=== PATIENT | male | born 1975 | race Caucasian/White ===

== ENCOUNTER 2016-03-03 11:57 | Emergency (ER) | payer OTHER ==
[2016-03-03 13:38] VITALS: BP 146/90
[2016-03-03] MEDS ORDERED: Cyclobenzaprine TAB* 10 MG PO ONE (14:37)
[2016-03-03] MEDS ORDERED: Ketorolac INJ* 30 MG/ML 1 ML VIAL IM ONE (14:37)
--- NOTE | 2016-03-03 14:52 | UC ---
Back Pain HPI - HPI Summary HPI Summary: Sneezed this morning, felt acute pain in lower back. Has had 2 surgeries ( laminectomy and fusion) by Dr. Gonzales and Dr. Hamilton, 2nd surgery started with a sneeze as well. Has some radiating pain and numbness in legs in typical pre- existing distribution. No saddle anesthesia or trouble with bowel or bladder. - History of Current Complaint Chief Complaint: UCBackPain Stated Complaint: BACK PAIN Time Seen by Provider: 03/03/16 14:08 Hx Obtained From: Patient Onset/Duration: Sudden Onset Timing: Constant Severity Initially: Severe Severity Currently: Severe Back Pain: Is Discrete @ Character: Dull, Aching, Spasmodic Aggravating: Movement, Bending, Walking, Cough Alleviating: Rest Associated Signs And Symptoms: Positive: Numbness - R foot. Negative: Swelling , Redness, Flank Pain, Bladder Incontinence - Allergies/Home Medications Allergies/Adverse Reactions: Allergies Allergy/AdvReac Type Severity Reaction Status Date / Time Cefaclor [From Ceclor] Allergy Unknown Verified 02/12/16 07:28 Reaction Details Erythromycin Allergy Unknown Verified 02/12/16 07:28 Reaction Details Home Medications: Home Medications Acetaminophen [Eq Acetaminophen] 650 mg PO 03/03/16 [History] PMH/Surg Hx/FS Hx/Imm Hx Endocrine History Of: Reports: Thyroid Disease - HYPO Denies: Diabetes, Hyperthyroidism, Hypothyroidism, Dyslipidemia Cardiovascular History Of: Reports: Hypertension - WELL CONTROLLED Denies: Cardiac Disorders, Pacemaker/ICD, Myocardial Infarction, Congestive Heart Failure, Atrial Fibrillation, Deep Vein Thrombosis, Bleeding Disorders Respiratory History Of: Reports: Asthma - EXERCISE INDUCED Denies: COPD, Bronchitis, Pneumonia, Pulmonary Embolism GI/ History Of: Denies: Gastroesophageal Reflux, Ulcer, Gastrointestinal Bleed, Gall Bladder Disease, Kidney Stones, Diverticulitis, Renal Disease, Urosepsis Neurological History Of: Denies: TIA, CVA, Dementia, Seizures, Migraine Psychological History Of: Denies: Anxiety, Depression, Bipolar Disorder, Schizophrenia, Post Traumatic Stress Disorder Cancer History Of: Denies: Lung Cancer, Colorectal Cancer, Breast Cancer, Prostate Cancer, Cervical Cancer Other History Of: Negative For: HIV, Hepatitis B, Hepatitis C, Anticoagulant Therapy - Surgical History Surgical History: Yes Surgery Procedure, Year, and Place: L4/5 LAMINOTOMY 2008 [facility] - redo in 2015. KNEE ARTHROSCOPY 20+YRS AGO [facility] - Family History Known Family History: Positive: Cardiac Disease, Hypertension Negative: Blood Disorder - Social History Occupation: Employed Part-time - at [employer] Lives: With Family Alcohol Use: Rare Substance Use Type: Prescribed Substance Use Comment - Amount & Last Used: OXYCODONE PRN Smoking Status (MU): Never Smoked Tobacco Review of Systems Constitutional: Negative Skin: Negative Eyes: Negative ENT: Negative Respiratory: Negative Cardiovascular: Negative Gastrointestinal: Negative Genitourinary: Negative Motor: Negative Neurovascular: Negative Musculoskeletal: Arthralgia, Calf Tenderness Neurological: Paresthesia - bilat legs Psychological: Negative All Other Systems Reviewed And Are Negative: Yes Physical Exam Triage Information Reviewed: Yes Appearance: Well-Appearing, Well-Nourished, Pain Distress - mod, with movement Vital Signs: Initial Vital Signs Temp 98.5 F 03/03/16 13:35 Pulse 73 03/03/16 13:35 Resp 18 03/03/16 13:35 BP 146/90 03/03/16 13:35 Pulse Ox 99 03/03/16 13:35 Vital Signs Reviewed: Yes Eye Exam: Normal Eyes: Positive: Conjunctiva Clear ENT Exam: Normal ENT: Positive: Normal ENT inspection, Hearing grossly normal, Pharynx normal, TMs normal Dental Exam: Normal Neck exam: Normal Neck: Positive: Supple, Nontender, No Lymphadenopathy Respiratory Exam: Normal Respiratory: Positive: Chest non-tender, Lungs clear, Normal breath sounds, No respiratory distress, No accessory muscle use Cardiovascular Exam: Normal Cardiovascular: Positive: RRR, No Murmur Musculoskeletal: Positive: Strength Intact, ROM Intact - except for back ROM Neurological Exam: Other - DTRs 1+ bilat LE Neurological: Positive: Alert, Muscle Tone Normal Psychological Exam: Normal Psychological: Positive: Normal Response To Family Skin Exam: Normal Back Pain Course/Dx - Differential Dx/Diagnosis Provider Diagnoses: lumbar radiculopathy. acute on chronic back pain Discharge - Discharge Plan Condition: Stable Disposition: HOME Prescriptions: HYDROcodone/ACETAMIN 5-325 MG* [[place] 5-325 TAB*] 1 tab PO Q6H PRN #12 tab MDD 4 PRN Reason: Pain Ketorolac TAB (NF) [Toradol TAB (NF)] 10 mg PO TID #15 tab traMADol TAB* [Ultram*] 50 mg PO Q6HR PRN #15 tab MDD 4 PRN Reason: Pain Patient Education Materials: Lumbar Radiculopathy (ED), Acute Low Back Pain (ED ) Referrals: Ludin Bar MD [Primary Care Provider] - Willie Damon MD [Medical Doctor] - 4 Days Additional Instructions: You have an appointment with Dr. Damon on Sunday03/07/16 at 3pm. If you have muscle weakness, incontinence, or uncontrollable pain before then, please go to the emergency department.
--- NOTE | 2016-03-03 15:10 | RAD ---
Indication: Pain when walking. Injury this morning; heard a pop. Pain radiates to the legs anteriorly. History of numbness in the feet. Previous laminectomy/surgery in 2009 and 2015. Comparison: March 11, 2015 Technique: AP, lateral, and oblique views lumbar sacral spine. Report: Straightening relative to normal lordosis without spondylolisthesis at any level. Negative for fracture or spondylolysis. Mild vertebral endplate osteophytosis and moderate disc space narrowing at L4-L5 with mild progression. Moderate L5-S1 disc space narrowing without change. Moderate L4-L5 and L5-S1 facet joint osteoarthritis. Unremarkable paraspinal soft tissue contours. IMPRESSION: Degenerative spondylosis and facet joint osteoarthritis. Suggestion of progression of disc space narrowing at L4-L5.
== END 2016-03-03 15:12 | disposition home or self-care (01) ==
LOC: UCEAST 11:57
DX: M54.16 Radiculopathy, lumbar region (principal); M54.5 Low back pain; Z88.1 Allergy status to other antibiotic agents
CPT/HCPCS: 72110; 96372; 99212; A9270-GY; G0463; J1885

== ENCOUNTER 2017-07-27 12:54 | Observation (INO) | payer OTHER ==
[2017-07-27] MEDS ORDERED: Aspirin 81 mg CHEW TAB* 81 MG TAB.CHEW PO ONE (12:58)
[2017-07-27 13:14] LABS: ABS Basophils 0 10^3/ul (0-0.2); ABS Eosinophils 0.1 10^3/ul (0-0.6); ABS Lymphocytes 1.5 10^3/ul (1.0-4.8); ABS Monocytes 0.4 10^3/ul (0-0.8); ABS Neutrophils 2.9 10^3/ul (1.5-7.7); ABS Nucleated RBC 0 10^3/ul; Eosinophil % 1.1 % (0-6); Hematocrit 49 % (42-52); Hemoglobin 17.1 g/dl (14.0-18.0); Lymphocyte % 30.1 % (25-47); Mean Corpuscular HGB Conc 35 g/dl (31-36); Mean Corpuscular Hemoglobin 31 pg (27-31); Mean Corpuscular Volume 90 fL (80-94); Mean Platelet Volume 7.2 um3 (7.4-10.4); Nucleated Red Blood Cells % 0.2; Platelet Count 230 10^3/ul (150-450); Red Blood Count 5.49 10^6/ul (4.0-5.4); Red Cell Distribution Width 13 % (10.5-15); White Blood Count 4.9 10^3/ul (3.5-10.8)
[2017-07-27] MEDS ORDERED: Nitroglycerin TAB 0.4 MG* 0.4 MG TAB SL ONE (13:21)
[2017-07-27 13:33] LABS: EGFR Non-African American 66.4 (>60)
--- NOTE | 2017-07-27 13:34 | RAD ---
INDICATION: Chest pain. COMPARISON: Comparison is made with a prior study from April 21, 2015. TECHNIQUE: A portable view of the chest was obtained. FINDINGS: Cardiac and mediastinal contours appear to be within normal limits. The lungs are clear. No pleural effusion is seen. IMPRESSION: NO EVIDENCE FOR ACUTE DISEASE.
[2017-07-27] MEDS ORDERED: cloNIDine TAB* 0.1 MG PO ONE (14:29)
--- NOTE | 2017-07-27 15:33 | ED ---
Gianni Barreto Tiffany, scribed for Bill Jaime MD on 07/27/17 at 1321 . HPI Chest Pain - HPI Summary HPI Summary: 42 year old M presenting to [facility] complains of chest tightness since 21:00 yesterday. Describes as pressure. Is constant. Does not radiate. The patient rates the pain 6/10 in severity. Symptoms aggravated by deep breaths. Symptoms alleviated by nothing. Patient reports shortness of breath, nausea, headache, dizziness. Denies vomiting, feeling of passing out. Patient states that he noticed a chest bump that felt like the size of a capsule in the mirror last night, went away when patient touched it. Hx HTN. - History of Current Complaint Chief Complaint: EDChestPainROMI Time Seen by Provider: 07/27/17 12:57 Hx Obtained From: Patient Onset/Duration: Started Days Ago - At 21:00 yesterday, Still Present Timing: Constant Current Severity: Moderate Pain Intensity: 6 Pain Scale Used: 0-10 Numeric Chest Pain Radiates: No Character: Pressure/Squeezing, Tightness Aggravating Factor(s): Deep Breaths Alleviating Factor(s): Nothing Associated Signs and Symptoms: Positive: Negative - vomiting, feeling of passing out, Other: - Allergy/Home Medications Allergies/Adverse Reactions: Allergies Allergy/AdvReac Type Severity Reaction Status Date / Time cefaclor [From [facility]] Allergy Unknown Verified 07/27/17 12:56 Reaction Details erythromycin base Allergy Unknown Verified 07/27/17 12:56 Reaction Details PMH/Surg Hx/FS Hx/Imm Hx Previously Healthy: No Endocrine/Hematology History: Reports: Hx Thyroid Disease - HYPO Denies: Hx Anticoagulant Therapy, Hx Diabetes Cardiovascular History: Reports: Hx Hypertension - WELL CONTROLLED Denies: Hx Congestive Heart Failure, Hx Deep Vein Thrombosis, Hx Myocardial Infarction, Hx Pacemaker/ICD Respiratory History: Reports: Hx Asthma - EXERCISE INDUCED Denies: Hx Chronic Obstructive Pulmonary Disease (COPD), Hx Lung Cancer, Hx Pneumonia, Hx Pulmonary Embolism GI History: Reports: Hx Gastroesophageal Reflux Disease - OCC Denies: Hx Gall Bladder Disease, Hx Gastrointestinal Bleed, Hx Ulcer, Hx Urosepsis History: Denies: Hx Kidney Stones, Hx Renal Disease Musculoskeletal History: Reports: Hx Back Problems - herniated discs Sensory History: Denies: Hx Contacts or Glasses, Hx Hearing Aid Opthamlomology History: Denies: Hx Contacts or Glasses Neurological History: Denies: Hx Dementia, Hx Migraine, Hx Seizures, Hx Transient Ischemic Attacks (TIA) Psychiatric History: Reports: Hx Substance Abuse - oxycodone Denies: Hx Anxiety, Hx Depression, Hx Panic Disorder, Hx Schizophrenia, Hx Bipolar Disorder - Surgical History Surgery Procedure, Year, and Place: L4/[address] [facility] - redo in 2015. KNEE ARTHROSCOPY 20+[address] [facility] Hx Anesthesia Reactions: No Infectious Disease History: No Infectious Disease History: Reports: Hx Shingles Denies: Hx Hepatitis, Hx Human Immunodeficiency Virus (HIV), History Other Infectious Disease, Traveled Outside the [place] in Last 30 Days - Family History Known Family History: Positive: Cardiac Disease, Hypertension - Social History Alcohol Use: Rare Hx Substance Use: Yes Substance Use Type: Reports: Prescribed Substance Use Comment - Amount & Last Used: OXYCODONE PRN Hx Tobacco Use: No Smoking Status (MU): Never Smoked Tobacco Review of Systems Positive: Other - chest tightness Positive: Shortness Of Breath Positive: Nausea. Negative: Vomiting Neurological: Other - Dizziness; NEGATIVE: feeling of passing out Positive: Headache All Other Systems Reviewed And Are Negative: Yes Physical Exam - Summary Physical Exam Summary: VITAL SIGNS: Reviewed. GENERAL: Patient is a well-developed and nourished male who is lying comfortable in the stretcher. Patient is not in any acute respiratory distress. HEAD AND FACE: No signs of trauma. No ecchymosis, hematomas or skull depressions. No sinus tenderness. EYES: PERRLA, EOMI x 2, No injected conjunctiva, no nystagmus. EARS: Hearing grossly intact. Ear canals and tympanic membranes are within normal limits. MOUTH: Oropharynx within normal limits. NECK: Supple, trachea is midline, no adenopathy, no JVD, no carotid bruit, no c- spine tenderness, neck with full ROM. CHEST: Symmetric, no tenderness at palpation LUNGS: Clear to auscultation bilaterally. No wheezing or crackles. CVS: Regular rate and rhythm, S1 and S2 present, no murmurs or gallops appreciated. ABDOMEN: Soft, non-tender. No signs of distention. No rebound no guarding, and no masses palpated. Bowel sounds are normal. EXTREMITIES: FROM in all major joints, no edema, no cyanosis or clubbing. NEURO: Alert and oriented x 3. No acute neurological deficits. Speech is normal and follows commands. SKIN: Dry and warm Triage Information Reviewed: Yes Vital Signs On Initial Exam: Initial Vitals Temp Pulse Resp BP Pulse Ox 98.8 F 63 15 156/106 98 07/27/17 12:58 07/27/17 12:58 07/27/17 12:58 07/27/17 12:58 07/27/17 12:58 Vital Signs Reviewed: Yes Diagnostics - Vital Signs Vital Signs Temp Pulse Resp BP Pulse Ox 07/27/17 13:00 70 17 156/106 98 07/27/17 12:58 98.8 F 63 15 156/106 98 - Laboratory Lab Results: Lab Results 07/27/17 Range/Units 13:05 WBC 4.9 (3.5-10.8) 10^3/ul RBC 5.49 H (4.0-5.4) 10^6/ul Hgb 17.1 (14.0-18.0) g/dl Hct 49 (42-52) % MCV 90 (80-94) fL MCH 31 (27-31) pg MCHC 35 (31-36) g/dl RDW 13 (10.5-15) % Plt Count 230 (150-450) 10^3/ul MPV 7.2 L (7.4-10.4) um3 Neut % (Auto) 59.7 (38-83) % Lymph % (Auto) 30.1 (25-47) % [place] % (Auto) 8.3 H (0-7) % Eos % (Auto) 1.1 (0-6) % Baso % (Auto) 0.8 (0-2) % Absolute Neuts (auto) 2.9 (1.5-7.7) 10^3/ul Absolute Lymphs (auto) 1.5 (1.0-4.8) 10^3/ul Absolute Monos (auto) 0.4 (0-0.8) 10^3/ul Absolute Eos (auto) 0.1 (0-0.6) 10^3/ul Absolute Basos (auto) 0 (0-0.2) 10^3/ul Absolute Nucleated RBC 0 10^3/ul Nucleated RBC % 0.2 Result Diagrams: 07/27/17 13:05 07/27/17 13:05 Lab Statement: Any lab studies that have been ordered have been reviewed, and results considered in the medical decision making process. - Radiology CXR Radiology Interpretation Completed By: Radiologist - NO EVIDENCE FOR ACUTE DISEASE. ED physician has reviewed this report. - EKG 12:56 Cardiac Rate: NL - 64 BPM EKG Rhythm: Sinus Rhythm EKG Interpretation: No ST elevations. STLV repolarization. T-wave progression of III. EKG Comparison: No Significant Change - From 10/12/15 Re-Evaluation - Re-Evaluation First Eval Re-Evaluation Time: 15:00 Comment: Patient is agreeable to admission. Chest Pain Course/Dx - Course Assessment/Plan: This patient is a 6-year-old male who presents to the emergency department with a chief complaint of having chest pressure. She has past medical history for hypertension and hypothyroidism. In the ED course the patient was placed in a groundwater monitoring technician, IV access was obtained. Patient was given aspirin and nitroglycerin. After the patient was given these medications the patients symptoms resolved. He reports that the chest pressure and immediately it was resolved. Blood tests results without any significant abnormality except for creatinine 1.21, total creatinine kinase of 370 and CK- MB is 12. Troponin is 0.00. Because of the patients comorbidities and presentations of symptoms I discussed the case with Dr. Wells from the hospitalist services he agreed to admit the patient to his services for further workup and management. Patient is hemodynamically stable alert and oriented 3. - Chest Pain Differential Diagnosis/HQI/PQRI: Acute PA, ACS, Angina, CHF, Chest Wall, GI Disease, Lower Respiratory Infection - Diagnoses Provider Diagnoses: Chest pain of unknown etiology - Provider Notifications Discussed Care Of Patient With: Donaldo Wells Time Discussed With Above Provider: 15:30 Instructed by Provider To: Other - Dr. Wells, hospitalist, agrees to admit the patient. Discharge - Sign-Out/Discharge Documenting (check all that apply): Discharge/Admit/Transfer - Discharge Plan Condition: Stable Disposition: ADMITTED TO [facility] Referrals: Ludin Bar MD [Primary Care Provider] - - Billing Disposition and Condition Condition: STABLE Disposition: Admitted to [facility] The documentation as recorded by the Gianni kim Tiffany accurately reflects the service I personally performed and the decisions made by , Bill Jaime MD.
[2017-07-27] MEDS ORDERED: Atorvastatin* 80 MG TAB PO ONE (16:00)
[2017-07-27] MEDS ORDERED: Nitroglycerin TAB 0.4 MG* 0.4 MG TAB SL PRN (16:01)
[2017-07-27] MEDS ORDERED: Al Hydrox/Mg Hydrox/Simet LIQ* 30 ML UDC PO PRN (16:13)
[2017-07-27] MEDS: Metoprolol Tartrate TAB* 25 MG PO SCH ×2 (17:40→21:09)
[2017-07-27] MEDS: Isosorbide Dinitrate TAB* 10 MG PO SCH ×2 (17:40→21:09)
--- NOTE | 2017-07-27 18:52 | ECHO ---
Patient: MICHAEL VARELA [facility] Rec#: [id number] : 1975 Date: 07/27/2017 Age: 42y Height: 172.7 cm / 68.0 in Weight: 83.9 kg / 184.9 lbs Sex: M BSA: 2 Room#: 440 Admit Date#: 07/27/2017 Type: Inpatient Referring: Donaldo Wells Reading: Mike Shrestha DO Estate Planning Director: Zuleyka Huitron RN RDCS CC: Ludin Bar MD Transthoracic Echocardiogram Indication: Chest pain BP: 145/96 HR: 62 Rhythm: NSR Findings History: HTN, hypothyroidism, exercise-induced asthma. Technical Comments: The study quality is fair. Left Ventricle: The left ventricular chamber size is normal. There is no left ventricular hypertrophy. Global left ventricular wall motion and contractility are within normal limits. There is normal left ventricular systolic function. The estimated ejection fraction is 55-60%. Normal left ventricular diastolic filling is observed. Left Atrium: The left atrial chamber size is normal. Right Ventricle: The right ventricular cavity size is normal. The right ventricular global systolic function is normal. Right Atrium: The right atrium is slightly dilated. Aortic Valve: The aortic valve is trileaflet. There is no evidence of aortic regurgitation. There is no evidence of aortic stenosis. Mitral Valve: The mitral valve leaflets are mildly thickened. There is a trace of mitral regurgitation. There is no evidence of mitral stenosis. Tricuspid Valve: The tricuspid valve leaflets are normal. There is trace tricuspid regurgitation. Unable to estimate the right ventricular systolic pressure. There is no tricuspid stenosis. Pulmonic Valve: The pulmonic valve appears normal. There is a trace pulmonic regurgitation. There is no pulmonic stenosis. Pericardium: There is no significant pericardial effusion. Aorta: There is no dilatation of the ascending aorta. There is no dilatation of the aortic arch. There is no dilation of the aortic root. Pulmonary Artery: The main pulmonary artery is not well visualized. Venous: The inferior vena cava appears normal in size. There is an approximate 50% respiratory change in the inferior vena cava dimension. Conclusions The left ventricular chamber size is normal. There is no left ventricular hypertrophy. Global left ventricular wall motion and contractility are within normal limits. There is normal left ventricular systolic function. The estimated ejection fraction is 55-60%. Normal left atrial size The right ventricular cavity size is normal. The right ventricular global systolic function is normal. No significant valvular abnormalities noted None prior for comparison at time of interpretation Measurements Name Value Normal Range RVIDd (AP) 2D 3.1 cm (0.9 - 2.6) RVDdMajor (2D) 3 cm (2.2 - 4.4) RAd ISD 4CH 5 cm (3.4 - 4.9) RA (A4C)W 3.9 cm (2.9 - 4.6) IVSd (2D) 1 cm (0.6 - 1) LVPWd (2D) 1 cm (0.6 - 1) LVIDd (2D) 4.5 cm (3.6 - 5.4) LVIDs (2D) 2.9 cm - LV FS (2D) 35 % (25 - 45) Aortic Annulus 2.1 cm (1.4 - 2.6) Ao root diameter (2D) 2.8 cm (2.1 - 3.5) Ascending Ao 3.1 cm (2.1 - 3.4) Aortic arch 2.1 cm (1.8 - 3.4) LAd ISD 4CH 5.1 cm (2.9 - 5.3) LA ISD 4CH W 3.6 cm (2.5 - 4.5) Name Value Normal Range LA ESV SP 4CH (A/L) 38 ml - LA ESV SP 2CH (A/L) 31 ml - LA ESV BP (A/L) 37 ml - LA ESV BP (A/L) index 18.5 ml/m2 - LA ESV SP 4CH (MOD) 35 ml - LA ESV SP 2CH (MOD) 29 ml - Name Value Normal Range MV E-wave Vmax 0.66 m/sec - MV deceleration time 256 msec - MV A-wave Vmax 0.6 m/sec - MV E:A ratio 1.1 ratio - LV septal e' Vmax 0.09 m/sec - LV lateral e' Vmax 0.12 m/sec - LV E:e' septal ratio 7.3 ratio - LV E:e' lateral ratio 5.5 ratio - Name Value Normal Range AV Vmax 1.3 m/sec - AV VTI 24.4 cm - AV peak gradient 7.3 mmHg - AV mean gradient 4 mmHg - LVOT Vmax 1.3 m/sec - LVOT VTI 22.7 cm - LVOT peak gradient 6.8 mmHg - LVOT mean gradient 3.3 mmHg - JOSÉ LUIS Vmax 0.77 m/sec - Name Value Normal Range IVC diameter 1.1 cm - Name Value Normal Range PV Vmax 0.99 m/sec -
[2017-07-27] MEDS: Heparin VIAL(*) 5000 UNITS/ML VIAL (FIVE THOUSAND) SUBCUT SCH (21:09)
--- NOTE | 2017-07-27 22:41 | HP ---
HISTORY AND PHYSICAL: DATE OF ADMISSION: 07/27/17 ADMITTING PROVIDER: Donaldo Wells MD PRIMARY CARE PROVIDER: Ludin Bar MD CHIEF COMPLAINT: Chest tightness. HISTORY OF PRESENT ILLNESS: Facundo Bartholomew is a 42-year-old male with longstanding hypertension (diagnosed at age 18), hypothyroidism, chronic lumbar back pain, mild exertional asthma. At 8 p.m. night prior to admission, he was brushing his teeth when he developed chest tightness 6/10. There was no radiation to the pain. It persisted throughout the night causing difficulty with sleep. It was not exertional. He tried the Tums with no relief. The pain is centered in his upper chest. It felt slightly similar to when he gets his asthma flares, but it was more persistent. He also developed a headache more so than usual. He gets chronic tension headaches that never really completely goes away. He felt like his blood pressure was likely elevated as he felt somewhat flush in the face. He took ibuprofen for the headache with a little bit of relief. He presented given the continuing nature of the symptoms to the [facility] Emergency Room, still complaining of 6/10 chest tightness. He received 324 mg of aspirin and 1 sublingual nitroglycerin with good relief of the chest tightness to 0/10. In the subsequent time, the chest tightness has slowly started to rise and now currently 5/10. He had an EKG, which showed some chronic T-wave inversions in lead 3. Comparison was in September 2015, there is normal axis, no ST elevations or depressions. QTC is 416. The patient was referred to hospitalist service for ACS rule out. The patient is a never smoker. Does have a sister who at age 5-1/2 of Tetralogy of Fallot. Has been on lisinopril/hydrochlorothiazide recently. He does not check his blood pressures at home. In the emergency room, he was hypertensive to 156/106. PAST MEDICAL HISTORY: 1. Longstanding hypertension since age 18. 2. Hypothyroidism. 3. Chronic low back pain status post 2 herniated disk surgeries. 4. Mild exertional asthma. ALLERGIES: Include CEFACLOR and ERYTHROMYCIN. 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 He is a never smoker. Only occasional alcohol use. He denies cocaine or other recreational drug use. He is a full code. He is accompanied by Karen Bartholomew, his who is his medical surrogate. FAMILY HISTORY: His mother is present in the room, has hypertension and hypothyroidism. His father of lung cancer at age 70, he was a longtime smoker and was hypertensive. His sister at age 5-1/2 from Tetralogy of Fallot. REVIEW OF SYSTEMS: Complete 14-point review of systems is negative, except as per HPI. He denies any shortness of breath, radiation of the pain to his jaw, back, down arms. No numbness or tingling. He does have some slight nausea, but no vomiting. A sensation of flushness in his face and some slight vision changes, which he attributes also to the high blood pressure. He denies any abdominal pain, neck stiffness, sick contacts, rashes, focal weakness. PHYSICAL EXAMINATION GENERAL APPEARANCE: No acute distress, in the hospital bed. VITAL SIGNS: Temperature 98.8, pulse rate 67, respiratory rate 17, satting 98% on room air, initial blood pressure 156/106, currently 145/96. HEENT: Normocephalic, atraumatic. Pupils are equal, round, and reactive to light. Extraocular motions are intact. No scleral icterus. Moist mucous membranes. NECK: No cervical lymphadenopathy. Neck is supple. LUNGS: Clear to auscultation bilaterally with no wheezing, rales, or rhonchi. CARDIOVASCULAR: Regular rate and rhythm. No murmurs, rubs, or gallops. No JVD appreciated. ABDOMEN: Soft, nontender, nondistended. EXTREMITIES: Warm, well perfused. No peripheral edema. NEURO: Cranial nerves II through XII intact. Ostomy Rn strength intact. LABORATORY DATA: White count 4.9, hemoglobin 17.1, hematocrit 49, platelets 230. Sodium 137, potassium 3.9, chloride 101, carbon dioxide 27, BUN 19, creatinine 1.21, GFR 66, glucose 104. Lactic acid 0.8. Calcium 10.0. Magnesium 2.0. , AST 27, ALT 32, alk phos 42. Total CK 370, CK-MB 12.0. Troponin 0.00. BNP 29. Total protein 7.8. TSH 2.73. IMAGING: Chest x-ray demonstrated no evidence for acute disease. EKG demonstrated normal sinus rhythm, normal axis, heart rate 64, chronic T-wave inversion in lead 3, no ST elevations or depressions. ASSESSMENT AND PLAN: Facundo Bartholomew is a 42-year-old male with past medical history of longstanding hypertension, sister with congenital heart problems ( Tetralogy of Fallot), presenting with a chest pressure for the last 16 hours; initially improved with nitroglycerin, now returning. He has been admitted for ACS rule out. He can start metoprolol tartrate 25 mg q.6 hours along with isosorbide dinitrate 10 mg p.o. q.i.d., atorvastatin 80 mg, and aspirin 81 mg daily. He will be on telemetry service. I am adding A1c and lipid panel to already drawn labs. We will trend troponins every 3 hours until peak, the second one has already been drawn. I am also adding an echocardiogram, he has never had one before. He has had hypertension for 24 years and history of congenital heart disease in his sister. Also we will be able to determine wall motion abnormalities. Also, does have T-wave inversions in lead 3, although it is chronic since 2016 and may show evidence of any right heart strain, so it could be essentially associated with pulmonary embolism. He denies any shortness of breath and is not tachycardic. Could consider adding on D-dimer if other workup is negative. He denies any immobilization, family or personal history of blood clots, recent surgeries. No known cancer history. He can eat a heart-healthy diet. He is being admitted to observation status. Medical surrogate is his , Karen Bartholomew. [id number]/[facility] #: [id number] [facility]ITALLoida
[2017-07-28] MEDS: Metoprolol Tartrate TAB* 25 MG PO SCH ×2 (04:06→10:35)
[2017-07-28] MEDS: Heparin VIAL(*) 5000 UNITS/ML VIAL (FIVE THOUSAND) SUBCUT SCH ×2 (05:49→13:59)
[2017-07-28] MEDS ORDERED: Levothyroxine TAB* 25 MCG TAB PO SCH (06:00)
[2017-07-28 06:36] LABS: ABS Basophils 0.1 10^3/ul (0-0.2); ABS Eosinophils 0 10^3/ul (0-0.6); ABS Lymphocytes 1.5 10^3/ul (1.0-4.8); ABS Monocytes 0.5 10^3/ul (0-0.8); ABS Neutrophils 4.6 10^3/ul (1.5-7.7); ABS Nucleated RBC 0 10^3/ul; Eosinophil % 0.6 % (0-6); Hematocrit 47 % (42-52); Hemoglobin 16.3 g/dl (14.0-18.0); Lymphocyte % 22.7 % (25-47); Mean Corpuscular HGB Conc 35 g/dl (31-36); Mean Corpuscular Hemoglobin 31 pg (27-31); Mean Corpuscular Volume 89 fL (80-94); Nucleated Red Blood Cells % 0.1; Platelet Count 242 10^3/ul (150-450); Red Blood Count 5.24 10^6/ul (4.0-5.4); Red Cell Distribution Width 13 % (10.5-15); White Blood Count 6.7 10^3/ul (3.5-10.8)
[2017-07-28 06:53] LABS: EGFR Non-African American 63.4 (>60)
[2017-07-28] MEDS: Isosorbide Dinitrate TAB* 10 MG PO SCH (08:14)
[2017-07-28] MEDS ORDERED: Hydrochlorothiazide TAB* 25 MG PO SCH (09:00)
[2017-07-28] MEDS ORDERED: Aspirin 81 mg CHEW TAB* 81 MG TAB.CHEW PO SCH (09:00)
[2017-07-28] MEDS ORDERED: Lisinopril TAB* 10 MG PO SCH (09:00)
[2017-07-28] MEDS ORDERED: Ketorolac INJ* 30 MG/ML 1 ML VIAL IV PUSH ONE (13:35)
--- NOTE | 2017-07-28 13:46 | CONSULT ---
Subjective Date of Service: 07/28/17 Interval History: Admission Date: 07/27/17 Consult Date 07/28/2017 Provider: Hospitalist Service PRIMARY CARE PROVIDER: Ludin Bar MD CHIEF COMPLAINT: Chest discomfort Reason for consult Chest discomfort HISTORY OF PRESENT ILLNESS: Facundo Bartholomew is a 42-year-old man with a history as below admitted with chest discomfort. Two nights ago he was brushing his teeth and noticed a lump on right pectoral region and pressed it. Later that night he felt discomfort in upper chest that lasted the entire night without interruption and he could not sleep. Tums did not relieve this. He called his and they decided to come to the ER. His discomfort was mostly improved with SL NTG after 15 hours of continuous discomfort but has returned as a lower burning central discomfort that is worse with inspiration, laying down and exertion. He also has complaint of headache which is chronic. His initial BP was 156/106 mmHg although this was in the setting of pain. He ruled out for ACS with ongoing continuous pain in the setting of normal troponins, normal EKGs. An echocardiogram was unremarkable. Inflammatory markers and d-dimer was normal. He has had two loose stools since admission. He was given 30 mg of IV toradol and 10 mg of po flexeril with near sustained resolution of his discomfort. PAST MEDICAL HISTORY: 1. Longstanding hypertension since age 18. He has checked on average every 3 months and is normal. 2. Hypothyroidism. 3. Chronic low back pain status post 2 herniated disk surgeries. 4. Mild exertional asthma. ALLERGIES: Include CEFACLOR and ERYTHROMYCIN. 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 He does lift weights but not within the past month. He is a never smoker. Only occasional alcohol use. He denies any marijuana or drug use. He is accompanied by Karen Bartholomew, his who is his medical surrogate. FAMILY HISTORY: His mother is present in the room, has hypertension and hypothyroidism. His father of lung cancer at age 70, he was a longtime smoker and was hypertensive. His sister at age 5-1/2 from Tetralogy of Fallot. Medications Active Medications: Al Hydrox/Mg Hydrox/Simethicone (Maalox Plus*) 30 ml PO Q4H PRN PRN Reason: HEARTBURN Last Admin: 07/28/17 05:53 Dose: 30 ml Atorvastatin Calcium (Lipitor*) 80 mg PO 1700 [facility] Heparin Sodium (Porcine) (Heparin Vial(*)) 5,000 units SUBCUT Q8HR [facility] Last Admin: 07/28/17 05:49 Dose: 5,000 units Hydrochlorothiazide (Hydrodiuril Tab*) 25 mg PO QAM [facility] Last Admin: 07/28/17 08:14 Dose: 25 mg Levothyroxine Sodium (Synthroid Tab*) 25 mcg PO QAM@0600 [facility] Last Admin: 07/28/17 05:49 Dose: 25 mcg Lisinopril (Prinivil Tab*) 20 mg PO QAM [facility] Last Admin: 07/28/17 08:13 Dose: 20 mg Nitroglycerin (Nitroglycerin Tab 0.4 Mg*) 0.4 mg SL Q5M PRN PRN Reason: ANGINA Last Admin: 07/27/17 22:02 Dose: 0.4 mg Home Medications: Levothyroxine TAB* [Synthroid 25 MCG TAB*] 1 tab PO QAM 07/19/14 [History Confirmed 07/27/17] Lisinopril/HCTZ 20/25(NF) [Zestoretic 20/25(NF)] 1 tab PO QAM 07/19/14 [History Confirmed 07/27/17] Ibuprofen TAB* [Advil TAB*] 400 tab PO QPM PRN 03/08/15 [History Confirmed 07/27] Review of Systems - Measurements Intake and Output: Intake and Output Last 24 Hours 07/26/17 07/27/17 07/28/17 07/29/17 06:59 06:59 06:59 06:59 Intake Total 420 0 Balance 420 0 Weight 186 lb Intake: Oral 420 0 Other: Estimated Void Medium # Bowel Movements 0 # Voids 3 - Review of Systems Constitutional Symptoms: Negative: Weight Gain, Weight Loss, Weakness, Fatigue, Fever Dermatology: Negative: Rash, Skin Lesions HEENT: Negative: Change in Hearing, Vertigo Eyes: Negative: Change in Vision, Double Vision Thyroid: Negative: Palpitations, Weight Loss, Weight Gain Pulmonary: Negative: Cough, Sputum, Hemoptysis, Wheezing, Respiratory Distress, Shortness of Breath, Asthma, Exercise Intolerance Cardiology: Positive: Chest Pain Negative: Shortness of Breath, Palpitations, Swelling of Ankles, Peripheral Vascular Dis, Edema, Faintness, Syncope, Claudication, Paroxysmal Nocturnal Dyspnea, Orthopnea Gastroenterology: Positive: Nausea, Diarrhea Negative: Vomiting, Anorexia, Difficulty Swallowing, Heartburn, Constipation , Haematemesis, Melena Genital - Urinary: Negative: Dysuria, Hematuria Musculoskeletal: Negative: Joint Pain, Joint Stiffness Endocrinology: Negative: Obesity, Diabetes Hematologic/Lymphatic: Negative: Anemia, Easy Brusing, Hx Leukemia, Hx Lymphoma, Use of Anticoagulant, Use of Antiplatelet Drugs Neurology: Positive: Headaches Negative: Migraines, Change in Vision, Diplopia, Dizziness, Change in Balancing, Change in Coordination, Change in Memory, Hx of Stroke\TIA, Hx Seizures Psychiatry: Negative: Unusual Anxiety, Suicidal Ideation Allergic/Immunologic: Negative: Hx HIV, Immunocompromise Review of Systems Statement: All other review of systems negative, unless stated above. Objective Vital Signs: Temp Pulse Resp BP Pulse Ox 98.2 F 71 16 149/83 100 07/28/17 07:31 07/28/17 07:31 07/28/17 07:31 07/28/17 07:31 07/28/17 07:31 Oxygen Devices in Use Now: None Appearance: nad, pleasant. muscular build Ears/Nose/Mouth/Throat: Clear Oropharnyx, Mucous Membranes Moist Neck: NL Appearance and Movements; NL JVP, Trachea Midline Respiratory: Symmetrical Chest Expansion and Respiratory Effort, Clear to Auscultation Cardiovascular: NL Sounds; No Murmurs; No JVD, RRR, No Edema Abdominal: NL Sounds; No Tenderness; No Distention Extremities: No Edema Skin: No Rash or Ulcers, - - Discomfort is not reproducible Neurological: Alert and Oriented x 3 Laboratory Results: 07/28/17 05:38 07/28/17 05:38 Total Bilirubin 0.70 mg/dL (0.2-1.0) 07/27/17 13:05 AST 27 U/L (13-39) 07/27/17 13:05 ALT 32 U/L (7-52) 07/27/17 13:05 Alkaline Phosphatase 42 U/L (34-104) 07/27/17 13:05 CK-MB (CK-2) 12.0 ng/mL (0.6-6.3) H 07/27/17 13:05 B-Natriuretic Peptide 29 pg/mL (-100) 07/27/17 13:05 Total Protein 7.8 g/dL (6.4-8.9) 07/27/17 13:05 Albumin 5.0 g/dL (3.2-5.2) 07/27/17 13:05 Globulin 2.8 g/dL (2-4) 07/27/17 13:05 Albumin/Globulin Ratio 1.8 (1-3) 07/27/17 13:05 Triglycerides 131 mg/dL 07/27/17 13:05 Cholesterol 242 mg/dL 07/27/17 13:05 LDL Cholesterol 171 mg/dL 07/27/17 13:05 HDL Cholesterol 44.5 mg/dL 07/27/17 13:05 TSH 2.73 mcIU/mL (0.34-5.60) 07/27/17 13:05 07/27/17 07/27/17 15:43 18:44 Troponin I 0.00 0.00 Total CK 370, CK-MB 12.0. Troponin 0.00. BNP 29. hgba1c 5.2 Assessment/Plan Facundo Bartholomew is a 42-year-old man with a history as above admitted with what appears to be musculoskeletal related chest discomfort. Ongoing persistent chest discomfort for 15 hours in the setting of normal ekgs and serially undetectable troponin levels argues very strongly against myocardial ischemia. - Continue primary prevention statin, LDL high, reduce to 20 mg. Elevated CK likely related to body habitus and may be his baseline. Can recheck as an outpatient. - Continue home hypertensive medications - d/c beta-jacki and isordil (ordered) - Would prescribe short course of nsaids and prn flexeril - Given history of hypertension and dyslipidemia will arrange for an outpatient stress ekg Thank you for allowing me to participate in the cardiovascular care of this patient. Please do not hesitate to contact me with questions or concerns.
[2017-07-28] MEDS ORDERED: Cyclobenzaprine TAB* 10 MG PO ONE (14:29)
--- NOTE | 2017-07-28 14:43 | PN ---
Subjective Date of Service: 07/28/17 Interval History: Continue to c/o chest pain mid sternal radiated to back, slightly worse with deep breath. Denies chest pain with exertion or climbing stairs prior to admission. Denies abd pain n/v/d. Denies shortness of breath. Family History: Unchanged from Admission Social History: Unchanged from Admission Past Medical History: Unchanged from Admission Objective Active Medications: Al Hydrox/Mg Hydrox/Simethicone (Maalox Plus*) 30 ml PO Q4H PRN PRN Reason: HEARTBURN Last Admin: 07/28/17 05:53 Dose: 30 ml Atorvastatin Calcium (Lipitor*) 80 mg PO 1700 [facility] Heparin Sodium (Porcine) (Heparin Vial(*)) 5,000 units SUBCUT Q8HR [facility] Last Admin: 07/28/17 13:59 Dose: 5,000 units Hydrochlorothiazide (Hydrodiuril Tab*) 25 mg PO QAM [facility] Last Admin: 07/28/17 08:14 Dose: 25 mg Levothyroxine Sodium (Synthroid Tab*) 25 mcg PO QAM@0600 [facility] Last Admin: 07/28/17 05:49 Dose: 25 mcg Lisinopril (Prinivil Tab*) 20 mg PO QAM [facility] Last Admin: 07/28/17 08:13 Dose: 20 mg Nitroglycerin (Nitroglycerin Tab 0.4 Mg*) 0.4 mg SL Q5M PRN PRN Reason: ANGINA Last Admin: 07/27/17 22:02 Dose: 0.4 mg Vital Signs - 8 hr 07/28/17 07/28/17 07:31 11:10 Temperature 98.2 F 98.7 F Pulse Rate 71 73 Respiratory 16 14 Rate Blood Pressure 149/83 151/75 (mmHg) O2 Sat by Pulse 100 99 Oximetry Oxygen Devices in Use Now: None Appearance: appears stated age, appears comfortable resting in bed, no acute distress. Eyes: No Scleral Icterus Ears/Nose/Mouth/Throat: Clear Oropharnyx, Mucous Membranes Moist Neck: NL Appearance and Movements; NL JVP, Trachea Midline Respiratory: Symmetrical Chest Expansion and Respiratory Effort, Clear to Auscultation Cardiovascular: NL Sounds; No Murmurs; No JVD, No Edema Abdominal: NL Sounds; No Tenderness; No Distention Extremities: No Edema, No Clubbing, Cyanosis Skin: No Rash or Ulcers, No Nodules or Sclerosis Neurological: Alert and Oriented x 3 Nutrition: Taking PO's Result Diagrams: 07/28/17 05:38 07/28/17 05:38 Additional Lab and Data: Lab Results 07/27/17 Range/Units 13:05 WBC 4.9 (3.5-10.8) 10^3/ul RBC 5.49 H (4.0-5.4) 10^6/ul Hgb 17.1 (14.0-18.0) g/dl Hct 49 (42-52) % MCV 90 (80-94) fL MCH 31 (27-31) pg MCHC 35 (31-36) g/dl RDW 13 (10.5-15) % Plt Count 230 (150-450) 10^3/ul MPV 7.2 L (7.4-10.4) um3 Neut % (Auto) 59.7 (38-83) % Lymph % (Auto) 30.1 (25-47) % [place] % (Auto) 8.3 H (0-7) % Eos % (Auto) 1.1 (0-6) % Baso % (Auto) 0.8 (0-2) % Absolute Neuts (auto) 2.9 (1.5-7.7) 10^3/ul Absolute Lymphs (auto) 1.5 (1.0-4.8) 10^3/ul Absolute Monos (auto) 0.4 (0-0.8) 10^3/ul Absolute Eos (auto) 0.1 (0-0.6) 10^3/ul Absolute Basos (auto) 0 (0-0.2) 10^3/ul Absolute Nucleated RBC 0 10^3/ul Nucleated RBC % 0.2 Assess/Plan/Problems-Billing Assessment: Mr. Bartholomew is a 42 y.o male with a long standing hx of hypertension (since the age of 18) that presented to the emergency room with Chest pain. Troponin' s are negative. - Patient Problems (1) Chest pain Status: Acute Code(s): R07.9 - CHEST PAIN, UNSPECIFIED SNOMED Code(s): 04076446 Comment: Consulted cardiology- d/t continued chest pain relieved with Nitroglycerin continue telemetry monitoring trop- negative x 3 Echo- WNL EF 55-60 % Patient was seen and evaluated by cardiology- recommended flexeril and ibuprofen for chest wall pain. (2) Hypertension Status: Acute Code(s): I10 - ESSENTIAL (PRIMARY) HYPERTENSION SNOMED Code(s) : 22191035 Comment: Continue lisinopril and HCTZ (3) Hyperlipidemia Status: Acute Code(s): E78.5 - HYPERLIPIDEMIA, UNSPECIFIED SNOMED Code(s): 03316631 Comment: will continue lipitor at 20 mg as per Cardiology recommendations (4) DVT prophylaxis Status: Acute Code(s): EKB9166 - SNOMED Code(s): 987617164 Comment: continue heparin SubQ (5) Full code status Status: Acute Code(s): Z78.9 - OTHER SPECIFIED HEALTH STATUS SNOMED Code(s) : 609131528 Status and Disposition: obv
[2017-07-28] MEDS ORDERED: Atorvastatin* 80 MG TAB PO SCH (17:00)
[2017-07-28 17:32] VITALS: BP 122/76
--- NOTE | 2017-07-29 23:04 | DS ---
DISCHARGE SUMMARY: DATE OF ADMISSION: 07/27/17 DATE OF DISCHARGE: 07/28/17 ATTENDING PHYSICIAN: Dr. Samantha Magaña * (dictated by Nadia Mata, JAYDA). PRIMARY CARE PROVIDER: Dr. Ludin Bar. PRIMARY DIAGNOSES: 1. Chest wall pain. 2. Hyperlipidemia. SECONDARY DIAGNOSES: 1. Hypertension. 2. Hypothyroid. 3. Chronic low back pain. 4. Exertional asthma. STUDIES COMPLETED WHILE IN THE HOSPITAL: He had a chest x-ray on 07/27/17, radiologist's impression: No evidence of acute disease. He had a transthoracic echocardiogram on 07/27/17, impression: Left ventricular chamber is normal size. There is no left ventricular hypertrophy. Global left ventricular wall motion and contractility are within normal limits. The left ventricular systolic function is normal. The estimated ejection fraction is 58% to 60%. Normal left atrial size. The right ventricle cavity is normal size. The right ventricle global systolic function is normal. There are no significant valvular abnormalities noted. There is no evidence of aortic stenosis, no evidence of mitral stenosis, no tricuspid stenosis, no pulmonic stenosis. There was no pericardial effusion. DISCHARGE MEDICATIONS: 1. Flexeril 10 mg p.o. q.8 hours as needed for pain. 2. Ibuprofen 600 mg b.i.d. as needed for pain. It was recommended that the patient attempt Tylenol 650 mg p.o. q.6 hours as needed for pain prior to taking ibuprofen. 3. Lipitor 20 mg p.o. daily. Continued home medications: 1. Lisinopril/hydrochlorothiazide 20/25. 2. Synthroid 25 mcg p.o. daily. HISTORY OF PRESENT ILLNESS AND HOSPITAL COURSE: Mr. Bartholomew is a 42-year-old male with a longstanding history of hypertension since the age of 18, hypothyroidism, chronic lower back pain, and mild exertional asthma. He developed some chest tightness rated at 6/10 while brushing his teeth the night prior to admission. There was no radiation of pain. The pain persisted throughout the night causing him to have difficulty to sleep. He tried Tums with no relief. The pain was centered in his upper chest. He felt that it was similar to when he gets the asthma flares, but it was more persistent. He also developed a headache more so than usual. He gets chronic tension headaches that never really completely go away. He felt that this was likely related to an elevation in his blood pressure. He took ibuprofen for the headache with little relief. He did present to the emergency room with continued complaints of chest tightness, 6/10. He received aspirin 324 mg and 1 sublingual nitro which gave him relief of his chest tightness to 0/10. During his time in the emergency room, the chest pain slowly returned, and on evaluation by the admitting doctor, his pain had returned to a 5/10. He had an EKG that showed chronic T-wave inversions when compared to an EKG from September of 2015. We were asked by the emergency room physician to admit the patient for rule out acute coronary syndrome. The patient was never a smoker. He does report that he had a sister who at age 5-1/2 due to tetralogy of Fallot. While in the emergency room, he had routine lab work drawn. He had serial troponins, which remained negative throughout his hospitalization at 0.00. He also had a D-dimer drawn that was less than 200. His A1c was 5.2. He did have a lipid profile, which showed triglycerides of 131, cholesterol of 242, LDL of 171, HDL of 44. During his hospitalization, he was monitored on telemetry. His troponins were trended and remained negative. The patient continued to have chest tightness that he reported that was slightly worse with deep breath. He was seen and evaluated by Cardiology. For full details of the Cardiology consult, see the full dictated report. In brief, Cardiology felt that this was related to musculoskeletal chest discomfort given that he had ongoing persistent chest pain for greater than 15 hours and the setting of normal EKGs and undetectable troponin levels argues very strongly against myocardial ischemia. They recommended primary prevention statin as his LDL was high and recommended that be prescribed ____ 20 mg p.o. daily. They recommended continuing his antihypertensive medication and a short course of NSAIDs and p.r.n. Flexeril. They also recommended given his history of hypertension and dyslipidemia, they would arrange for an outpatient stress EKG. Mr. Bartholomew denies any shortness of breath. He denies any nausea, vomiting, or diarrhea. Denies any abdominal pain. Denies any fever or chills. Denies any cough or congestion. He does continue to complain of some mild tightness in his mid chest area that does radiate to his back. Again, his D-dimer was negative. He has never been short of breath. He has never been tachycardic throughout this hospitalization. At this time, the patient did report relief after receiving Toradol and Flexeril of his symptoms. At this time, Mr. Bartholomew is stable for discharge home. Vital signs are as follows: Blood pressure 122/76, temperature was 99.3, pulse was 72, respirations were 20, O2 saturation was 98% on room air. DISCHARGE PLAN: Mr. Bartholomew will be discharged home. Activity as tolerated. He should continue a heart-healthy, low-sodium diet. 1. Chest wall pain. He can take Flexeril 10 mg q.8 hours as needed for chest pain. I also recommended that he take Tylenol 650 mg q.6 hours as needed for the pain. If he had unrelieved chest pain, he may take ibuprofen 600 mg as he does have mildly elevated renal functions. He was advised to use this medication sparingly. The patient should call Dr. Shrestha from Cardiology to schedule an outpatient stress test as recommended in the Cardiology consult. 2. Hyperlipidemia. He should continue atorvastatin 20 mg p.o. daily and follow up with his primary care provider for repeat lab work and liver function tests. 3. Hypertension. He should continue on his lisinopril/hydrochlorothiazide. 4. Mildly elevated serum creatinine. I suspect this may be related to the lisinopril that the patient is currently taking. I advised the patient to drink plenty of fluids and to avoid nephrotoxic agents and to limit the use of ibuprofen as this could as well increase his serum creatinine level. DISCHARGE FOLLOWUP: 1. The patient should call the cardiology office next week to schedule outpatient stress test. 2. He should follow up with his primary care provider in 4 to 7 days. The patient was instructed to return to the emergency room for any increased chest pain or unrelieved chest pain, shortness of breath, or any other worsening or concerning symptoms. The patient was advised not to use ibuprofen chronically, as he currently has elevated creatinine. This is a summary of his hospitalization. For further details, please see the entire medical record. TIME SPENT: Time spent on this discharge was approximately 60 minutes, greater than half that time was spent with the patient discussing discharge plans and instructions. CONDITION ON DISCHARGE: Stable. NADIA MATA, GEOGRAPHIC INFORMATION SYSTEMS DIRECTOR [id number]/[facility] #: [id number] SILVIA
== END 2017-07-28 17:30 | disposition home or self-care (01) ==
LOC: ED 12:54 → MEDTELE 15:35
PROVIDERS: ADMIT Internal Medicine; ATTEND Internal Medicine
DX: R07.89 Other chest pain (principal); E78.5 Hyperlipidemia, unspecified; I10 Essential (primary) hypertension; E03.9 Hypothyroidism, unspecified; M54.5 Low back pain; G89.29 Other chronic pain; J45.909 Unspecified asthma, uncomplicated; R51 Headache
CPT/HCPCS: 36415; 71045; 80048; 80053; 80061; 82550; 82553; 83036; 83605; 83735; 83880; 84443; 84484; 85025; 85379; 85652; 86140; 93005; 93306; 99283; A9270-GY; G0378; J1644; J1885

== ENCOUNTER 2017-07-28 20:46 | Emergency (ER) | payer OTHER ==
--- NOTE | 2017-07-28 22:47 | ED ---
Dizziness - HPI Summary HPI Summary: 42-year-old male presents with dizziness for the past couple hours. He states he was seen here overnight and work up for chest pain. He states that they did not find a cardiac cause and thought was muscular. started on flexural and all his pain resolved. He states that he was driving home developed the dizzy. He states this was a half and hour after the flexeril. He states that it is more that he feels very groggy and out of it and that the room is not spinning. Does not change with positional changes. No change in vision. States he feels very tired. He states that the symptoms lasted about 2 hours now since resolved. stills feels tired though. He states he's been on muscle relaxer before but never been on Flexeril. He states he believes the dizziness is due to Flexeril. He is requesting a different muscle relaxer. He states he has no chest pain now. No shortness of breath. No headache. - History Of Current Complaint Chief Complaint: EDGeneral Stated Complaint: DIZZY Time Seen by Provider: 07/28/17 22:22 - Allergies/Home Medications Allergies/Adverse Reactions: Allergies Allergy/AdvReac Type Severity Reaction Status Date / Time cefaclor [From [facility]] Allergy Unknown Verified 07/27/17 12:56 Reaction Details erythromycin base Allergy Unknown Verified 07/27/17 12:56 Reaction Details Home Medications: Home Medications Acetaminophen TAB* [Tylenol TAB*] 650 mg PO Q4H PRN 07/28/17 [History Confirmed 07/28/17] PMH/Surg Hx/FS Hx/Imm Hx Endocrine/Hematology History: Reports: Hx Thyroid Disease - HYPO Denies: Hx Anticoagulant Therapy, Hx Diabetes Cardiovascular History: Reports: Hx Hypertension - WELL CONTROLLED Denies: Hx Congestive Heart Failure, Hx Deep Vein Thrombosis, Hx Myocardial Infarction, Hx Pacemaker/ICD, Hx Peripheral Vascular Disease Respiratory History: Reports: Hx Asthma - EXERCISE INDUCED Denies: Hx Chronic Obstructive Pulmonary Disease (COPD), Hx Lung Cancer, Hx Pneumonia, Hx Pulmonary Embolism GI History: Reports: Hx Gastroesophageal Reflux Disease - OCC Denies: Hx Gall Bladder Disease, Hx Gastrointestinal Bleed, Hx Ulcer, Hx Urosepsis History: Denies: Hx Kidney Stones, Hx Renal Disease Musculoskeletal History: Reports: Hx Back Problems - herniated discs Sensory History: Denies: Hx Contacts or Glasses, Hx Hearing Aid Opthamlomology History: Denies: Hx Contacts or Glasses Neurological History: Reports: Hx Headaches Denies: Hx Dementia, Hx Migraine, Hx Seizures, Hx Transient Ischemic Attacks (TIA) Psychiatric History: Reports: Hx Substance Abuse - oxycodone Denies: Hx Anxiety, Hx Depression, Hx Panic Disorder, Hx Schizophrenia, Hx Bipolar Disorder - Surgical History Surgery Procedure, Year, and Place: L4/5 [place]OM[place] [facility] [place]. KNEE ARTHROSCOPY 20+YRS A[place] [facility] [place]x Anesthesia Reactions: No Infectious Disease History: No Infectious Disease History: Reports: Hx Shingles Denies: Hx Hepatitis, Hx Human Immunodeficiency Virus (HIV), History Other Infectious Disease, Traveled Outside the [place] in Last 30 Days - Family History Known Family History: Positive: Cardiac Disease, Hypertension Negative: Blood Disorder - Social History Alcohol Use: Rare Hx Substance Use: Yes Substance Use Type: Reports: None Substance Use Comment - Amount & Last Used: OXYCODONE PRN Hx Tobacco Use: No Smoking Status (MU): Never Smoked Tobacco Review of Systems Negative: Fever Negative: Chest Pain Negative: Shortness Of Breath Neurological: Other - dizziness All Other Systems Reviewed And Are Negative: Yes Physical Exam Triage Information Reviewed: Yes Vital Signs On Initial Exam: Initial Vitals Temp Pulse Resp BP Pulse Ox 97.3 F 79 18 135/91 97 07/28/17 20:57 07/28/17 20:57 07/28/17 20:57 07/28/17 20:57 07/28/17 20:57 Vital Signs Reviewed: Yes Appearance: Positive: Well-Appearing Skin: Positive: Warm, Dry Head/Face: Positive: Normal Head/Face Inspection Eyes: Positive: Normal, EOMI, UDAY, Conjunctiva Clear ENT: Positive: Normal ENT inspection, Pharynx normal, TMs normal Respiratory/Lung Sounds: Positive: Clear to Auscultation, Breath Sounds Present Cardiovascular: Positive: Normal, RRR Musculoskeletal: Positive: Normal Neurological: Positive: Sensory/Motor Intact, Alert, Oriented to Person Place, Time, CN Intact II-III Psychiatric: Positive: Normal Diagnostics - Vital Signs Vital Signs Temp Pulse Resp BP Pulse Ox 07/28/17 20:57 97.3 F 79 18 135/91 97 - Laboratory Lab Statement: Any lab studies that have been ordered have been reviewed, and results considered in the medical decision making process. Dizzy Course/Dx - Course Course Of Treatment: 42-year-old male presents with dizziness for the past couple hours. He states he was seen here overnight and work up for chest pain. He states that they did not find a cardiac cause and thought was muscular. started on flexural and all his pain resolved. He states that he was driving home developed the dizzy. He states this was a half and hour after the flexeril. He states that it is more that he feels very groggy and out of it and that the room is not spinning. Does not change with positional changes. No change in vision. States he feels very tired. He states that the symptoms lasted about 2 hours now since resolved. stills feels tired though. He states he's been on muscle relaxer before but never been on Flexeril. He states he believes the dizziness is due to Flexeril. He is requesting a different muscle relaxer. He states he has no chest pain now. No shortness of breath. No headache. Normal neuro exam. Patient's symptoms resolved. Reviewed labs from today and all normal. Discussed likely Flexeril causing his symptoms. We'll try Robaxin as unsure if has had before. Told may caused same symptoms. Patient understands and agrees with plan. - Diagnoses Differential Diagnosis/HQI/PQRI: Coronary Artery Disease, Medication Reaction, Metabolic Abnormality Provider Diagnoses: Dizziness Discharge - Sign-Out/Discharge Documenting (check all that apply): Discharge/Admit/Transfer - Discharge Plan Condition: Good Disposition: HOME Prescriptions: Methocarbamol TAB* [Robaxin 500 MG TAB*] 500 mg PO TID PRN #21 tab PRN Reason: Pain Patient Education Materials: Dizziness (ED) Referrals: Ludin Bar MD [Primary Care Provider] - Additional Instructions: symptoms likely due to flexeril, which should stop Will start robaxin up to three times a day for chest pain Follow up with primary within 5 days Return to ED if develop any new or worsening symptoms - Billing Disposition and Condition Condition: GOOD Disposition: Home
[2017-07-28 22:53] VITALS: BP 120/89
== END 2017-07-28 22:53 | disposition home or self-care (01) ==
LOC: ED 20:46
DX: R42 Dizziness and giddiness (principal); Z88.3 Allergy status to other anti-infective agents
CPT/HCPCS: 99282

== ENCOUNTER 2017-07-29 12:15 | Emergency (ER) | payer OTHER ==
[2017-07-29 13:47] LABS: ABS Basophils 0.1 10^3/ul (0-0.2); ABS Eosinophils 0 10^3/ul (0-0.6); ABS Lymphocytes 1.2 10^3/ul (1.0-4.8); ABS Monocytes 0.5 10^3/ul (0-0.8); ABS Neutrophils 5.9 10^3/ul (1.5-7.7); ABS Nucleated RBC 0.1 10^3/ul; Eosinophil % 0.4 % (0-6); Hematocrit 52 % (42-52); Hemoglobin 18.3 g/dl (14.0-18.0); Lymphocyte % 15.7 % (25-47); Mean Corpuscular HGB Conc 35 g/dl (31-36); Mean Corpuscular Hemoglobin 31 pg (27-31); Mean Corpuscular Volume 89 fL (80-94); Mean Platelet Volume 7.4 um3 (7.4-10.4); Platelet Count 268 10^3/ul (150-450); Red Blood Count 5.89 10^6/ul (4.0-5.4); Red Cell Distribution Width 13 % (10.5-15); White Blood Count 7.8 10^3/ul (3.5-10.8)
[2017-07-29 13:51] LABS: INR 0.96 (0.77-1.02)
--- NOTE | 2017-07-29 13:52 | RAD ---
INDICATION: Dizziness and chest pain COMPARISON: None. TECHNIQUE: Contiguous axial sections of the brain were obtained from the skull base to the vertex without contrast. FINDINGS: The ventricles, cisterns and sulci are within normal limits. The mac-white matter differentiation is adequately maintained and there is no sulcal effacement. No significant focal abnormality or mass effect is present. There is no evidence for intracranial hemorrhage. No significant focal osseous abnormality is present. The visualized portion of the paranasal sinuses appear clear. The mastoid air cells are well aerated bilaterally. IMPRESSION: Normal CT of the brain.
[2017-07-29 14:00] LABS: EGFR Non-African American 53.1 (>60)
--- NOTE | 2017-07-29 14:31 | RAD ---
INDICATION: Dizziness and chest pain COMPARISON: Chest x-ray dated July 27, 2017 TECHNIQUE: PA and lateral views of the chest were obtained. FINDINGS: The heart and mediastinum are normal in size and contour. The lungs are grossly clear. There is no evidence of large pleural effusion. Visualized bones are normal for the patient's age. There is no radiographic evidence of free air beneath the diaphragm IMPRESSION: No radiographic evidence of acute cardiopulmonary disease.
[2017-07-29] MEDS ORDERED: Labetalol IV* 5 MG/ML 20 ML VIAL IV PUSH ONE (14:52)
[2017-07-29] MEDS ORDERED: Meclizine TAB* 12.5 MG PO ONE (14:53)
[2017-07-29] MEDS ORDERED: LORazepam INJ* 2 MG/ML 1 ML VIAL IV PUSH ONE (16:08)
[2017-07-29 18:07] VITALS: BP 145/95
--- NOTE | 2017-07-30 01:42 | ED ---
Tish Barreto Simon, scribed for Ruma Kruger MD on 07/29/17 at 1329 . Dizziness - HPI Summary HPI Summary: This patient is a 42 year old M presenting to [facility] accompanied by his Maya and mother with a chief complaint of dizziness since 19007/28/17. Pt states He was admitted to the hospital 3 days ago for eval for ACS. Pt was discharged yesterday, after evaluation by Dr. Mike Shrestha and diagnosis of musculoskeletal chest pain, and pt has outpt stress test scheduled. Pt came into the ER last night for dizziness. Pt was evaluated by Mari Peralta and pt and UVALDO Guerra felt that pt's dizziness may have been due to flexeril, since pt's dizziness started 30 mins after taking flexeril. Pt was discharged ad "no CT brain done", per pt. He is still having dizziness today. Pt has a hx of anxiety. NTG helped his chest pain [address] Jaime. Blood work was fine as far as cardiac health is concerned as per pt. Dr. Shrestha gave him toradol, flexeril (last taken 1500 07/28/17) which pt states seems to have helped , but then now has this intermittent dizziness. Pt was not completely CP free at discharge from the hospital, but states his pain level was vague, barely noticeable. like it is now. Pt complains of mild CP now. His meds now include Flexeril (on hold since dizziness)Lipitor, Lisinopril/HCTZ. Once pt got out to his car last pm after the ED visit, things start to get woozy and once home, dizziness and disorientation symptoms worsened. Pt felt like he was in slo-mo . Pt couldnt sleep because of endorsed anxiety about health. My body is sensitive to pills. Pt got an RX for another muscle relaxant, robaxin, last pm , to replace flexeril, but pt was not able to take it because it was not available at the pharmacy, as it was special order. [place] reasonable last night, slept fine, a little foggy, dizzy. Went to get groceries with and once again got very dizzy and disoriented, same complaint as last nights (07/28/17) ED visit. Dizziness described as more of a fainting dizziness than a spinning dizziness. Endorses dizziness like weakness. Sx improved while stationary, worsened with movement. Endorses tightness in jaw. Pt takes lisinopril for HTN which he took this morning 20mg with HCTZ 25mg. Elevated BP noted upon initial encounter. Pt states BP is usually elevated when in the hospital, currently at 163/104, pulse 64. - History Of Current Complaint Chief Complaint: EDDizziness Stated Complaint: DIZZINESS Time Seen by Provider: 07/29/17 12:33 Hx Obtained From: Patient, Family/Shaper And Presser - and mother Last Known Well Date: 07/27/17 Onset/Duration: Still Present Timing: Hours Severity Initially: Severe Severity Currently: Moderate Character: Weak, Dizzy Aggravating Factor(s): Position Change, Supine To Erect Alleviating Factor(s): Lying Down Associated Signs And Symptoms: Positive: Chest Pain Related History: Similar Episode/Dx as - medication side effect (flexeril) - Risk Factors Cardiac Risk Factors: Hypertension, Elevated Lipids, Family History - Allergies/Home Medications Allergies/Adverse Reactions: Allergies Allergy/AdvReac Type Severity Reaction Status Date / Time cefaclor [From Ceclor] Allergy Unknown Verified 07/29/17 12:21 Reaction Details erythromycin base Allergy Unknown Verified 07/29/17 12:21 Reaction Details PMH/Surg Hx/FS Hx/Imm Hx Endocrine/Hematology History: Reports: Hx Thyroid Disease - HYPO Denies: Hx Anticoagulant Therapy, Hx Diabetes Cardiovascular History: Reports: Hx Hypertension Denies: Hx Congestive Heart Failure, Hx Deep Vein Thrombosis, Hx Myocardial Infarction, Hx Pacemaker/ICD, Hx Peripheral Vascular Disease Respiratory History: Reports: Hx Asthma - EXERCISE INDUCED Denies: Hx Chronic Obstructive Pulmonary Disease (COPD), Hx Lung Cancer, Hx Pneumonia, Hx Pulmonary Embolism GI History: Reports: Hx Gastroesophageal Reflux Disease Denies: Hx Gall Bladder Disease, Hx Gastrointestinal Bleed, Hx Ulcer, Hx Urosepsis History: Denies: Hx Kidney Stones, Hx Renal Disease Musculoskeletal History: Reports: Hx Back Problems - herniated discs Sensory History: Denies: Hx Contacts or Glasses, Hx Hearing Aid Opthamlomology History: Denies: Hx Contacts or Glasses Neurological History: Reports: Hx Headaches Denies: Hx Dementia, Hx Migraine, Hx Seizures, Hx Transient Ischemic Attacks (TIA) Psychiatric History: Reports: Hx Anxiety, Hx Substance Abuse - oxycodone (note -this note is in chart, not obtained by Dr. Kruger) Denies: Hx Depression, Hx Panic Disorder, Hx Schizophrenia, Hx Bipolar Disorder - Surgical History Surgery Procedure, Year, and Place: L4/5 LAMINOTOMY 2008 [facility] [place] - redo in 2015. KNEE ARTHROSCOPY 20+YRS AGO [facility] [place] Hx Anesthesia Reactions: No Infectious Disease History: Yes Infectious Disease History: Reports: Hx Shingles Denies: Hx Hepatitis, Hx Human Immunodeficiency Virus (HIV), History Other Infectious Disease, Traveled Outside the [place] in Last 30 Days - Family History Known Family History: Positive: Cardiac Disease, Hypertension, Other - sister with Tetralology of Fallot Negative: Blood Disorder - Social History Alcohol Use: Occasionally Hx Substance Use: Yes Substance Use Type: Reports: None Substance Use Comment - Amount & Last Used: OXYCODONE PRN Hx Tobacco Use: No Smoking Status (MU): Never Smoked Tobacco Review of Systems Positive: Chest Pain Neurological: Other - Dizzy, "foggy" Positive: Weakness Positive: Anxious All Other Systems Reviewed And Are Negative: Yes Physical Exam - Summary Physical Exam Summary: Appearance: Well-appearing, mild pain distress, well-nourished, prefers lying flat, dizziness worse with sitting up, hypertensive. Skin: Warm, color reflects adequate perfusion, dry Head: Normal Head/Face inspection, atraumatic Eyes: Conjunctiva clear ENT: Normal inspection, TMs clear Neck: Supple, no nodes, no JVD Respiratory: Lungs clear, normal breath sounds, no respiratory distress Cardio: RRR, No murmur, pulses normal, brisk capillary refill Abdomen: Soft, nontender Bowel sounds: Present Musculoskeletal: Strength Intact/ROM intact, no calf tenderness, no edema. Psychological: Normal Neuro: A&O x3, CN II-XII intact, motor function 5/5, sensation intact, cerebellar normal Triage Information Reviewed: Yes Vital Signs On Initial Exam: Initial Vitals Temp Pulse Resp BP Pulse Ox 98.4 F 82 16 162/98 99 07/29/17 12:15 07/29/17 12:15 07/29/17 12:15 07/29/17 12:15 07/29/17 12:15 Vital Signs Reviewed: Yes Diagnostics - Vital Signs Vital Signs Temp Pulse Resp BP Pulse Ox 07/29/17 12:15 98.4 F 82 16 162/98 99 - Laboratory Result Diagrams: 07/29/17 13:37 07/29/17 13:37 Lab Statement: Any lab studies that have been ordered have been reviewed, and results considered in the medical decision making process. - Radiology CXR Xray Interpretation: No Acute Changes Radiology Interpretation Completed By: Radiologist - No radiographic evidence of acute cardiopulmonary disease. Dr. Kruger aware of this report. - CT CT brain CT Interpretation: No Acute Changes CT Interpretation Completed By: Radiologist - Normal CT of the brain. Dr. Kruger has reviewed this report. - EKG 1336 Cardiac Rate: NL - 68 EKG Rhythm: Sinus Rhythm ST Segment: Normal Ectopy: None EKG Interpretation: nl AVIVCT, nl axis EKG Comparison: No Significant Change - compared to EKG 07/28/17 Re-Evaluation - Re-Evaluation First Eval Re-Evaluation Time: 16:25 Change: Improved - Dizziness is much better after meclizine, he can sit up without dizziness worsening. Pt, and mother advised of normal results of workup. Pt agrees to discharge. Dizzy Course/Dx - Course Course Of Treatment: Pt noted with rising creatinine, but GFR still normal. Given IV hydration, may be mildly dehydrated as cause of dizziness. His bilirubin is also rising 0.73-1.1 (normal is 1.0). Pt has no GI symptoms, and doubt increase bilirubin is related to his dizziness. Pt is stable for discharge with close follow up which has been arranged with stress test. Pt is also given a copy of his labs. Pt given Meclizine 25mg po with relief of dizziness. Initially planned to give labetalol IV for HTN, but BP decreased to 140's systolic and diastolics below 100 spontaneously, so IV antihypertensive was not given. Pt had unremarkable CXR and CT Brain. EKG was unchanged, and he had neg troponin and d dimer. Pt is discharged home with with RX for meclizine, to follow up with Dr. Bar, and stress test as scheduled. - Diagnoses Differential Diagnosis/HQI/PQRI: Benign Paroxysmal Positional Vertigo, Coronary Artery Disease, CVA, Hypovolemia, Labyrinthitis, Medication Reaction, Metabolic Abnormality Provider Diagnoses: Vertigo, Chest pain, Hypertension, poor control Discharge - Sign-Out/Discharge Documenting (check all that apply): Discharge/Admit/Transfer - Discharge - Discharge Plan Condition: Stable Disposition: HOME Prescriptions: Meclizine TAB* [Antivert 12.5 TAB*] 25 mg PO TID PRN #30 tab PRN Reason: Dizziness Patient Education Materials: Vertigo (ED) Referrals: Ludin Bar MD [Primary Care Provider] - 2 Days Additional Instructions: We gave you a copy of your labs and studies. You improved with meclizine. Follow up with Dr. Bar this week. We did not find a serious cause for your dizziness. Return to the ER if you have new or worsening symptoms. - Billing Disposition and Condition Condition: STABLE Disposition: Home The documentation as recorded by the Tish kim Simon accurately reflects the service I personally performed and the decisions made by , Ruma Kruger MD.
== END 2017-07-29 17:04 | disposition home or self-care (01) ==
LOC: ED 12:15
DX: R42 Dizziness and giddiness (principal); R07.9 Chest pain, unspecified; I10 Essential (primary) hypertension; Z79.899 Other long term (current) drug therapy; Z82.49 Family history of ischemic heart disease and other diseases of the circulatory system; Z88.3 Allergy status to other anti-infective agents
CPT/HCPCS: 36415; 70450; 71046; 80053; 80320; 82550; 83605; 83735; 84443; 84484; 85025; 85379; 85610; 86140; 93005; 99283; A9270-GY; G0480

== ENCOUNTER 2017-08-04 12:34 | Emergency (ER) | payer OTHER ==
[2017-08-04] MEDS ORDERED: hydrOXYzine HCL TAB* 25 MG PO ONE (13:19)
[2017-08-04 16:53] VITALS: BP 149/92
--- NOTE | 2017-08-04 18:24 | ED ---
Radha Barreto Jade, scribed for Noe Broussard MD on 08/04/17 at 1646 . Psychiatric Complaint - HPI Summary HPI Summary: Pt is a 42 y/o male who presents to the ED c/o anxiety. He states that he is prescribed Xanax for his anxiety, but it makes him feel strange and not like himself. Pt complains today of panic attacks, shakiness, palpitations, CP, SOB, and insomnia. He called his psychiatrist for a change in medications, but they are not open for another 2 days. He was given Atarax here, which resolved his anxiety. - History Of Current Complaint Chief Complaint: EDGeneral Time Seen by Provider: 08/04/17 16:11 Hx Obtained From: Patient Onset/Duration: Sudden Onset, Resolved Character: Anxious Aggravating Factor(s): Medication Non-compliance - Xanax Alleviating Factor(s): Medication - Atarax Has Suicidal: Denies: Thoughts Has Homicidal: Denies: Thoughts - Allergies/Home Medications Allergies/Adverse Reactions: Allergies Allergy/AdvReac Type Severity Reaction Status Date / Time amoxicillin Allergy Rash Verified 08/04/17 13:00 cefaclor [From [facility]] Allergy Unknown Verified 08/04/17 16:14 Reaction Details Home Medications: Home Medications Melatonin/Pyridoxine HCl (B6) [Melatonin 10 mg Tablet] 1 tab PO BEDTIME [History Confirmed 08/04/17] PMH/Surg Hx/FS Hx/Imm Hx Endocrine/Hematology History: Reports: Hx Thyroid Disease - HYPO Denies: Hx Anticoagulant Therapy, Hx Diabetes Cardiovascular History: Reports: Hx Hypertension Denies: Hx Congestive Heart Failure, Hx Deep Vein Thrombosis, Hx Myocardial Infarction, Hx Pacemaker/ICD, Hx Peripheral Vascular Disease Respiratory History: Reports: Hx Asthma - EXERCISE INDUCED Denies: Hx Chronic Obstructive Pulmonary Disease (COPD), Hx Lung Cancer, Hx Pneumonia, Hx Pulmonary Embolism GI History: Reports: Hx Gastroesophageal Reflux Disease Denies: Hx Gall Bladder Disease, Hx Gastrointestinal Bleed, Hx Ulcer, Hx Urosepsis History: Denies: Hx Kidney Stones, Hx Renal Disease Musculoskeletal History: Reports: Hx Back Problems - herniated discs Sensory History: Denies: Hx Contacts or Glasses, Hx Hearing Aid Opthamlomology History: Denies: Hx Contacts or Glasses Neurological History: Reports: Hx Headaches Denies: Hx Dementia, Hx Migraine, Hx Seizures, Hx Transient Ischemic Attacks (TIA) Psychiatric History: Reports: Hx Anxiety, Hx Substance Abuse - oxycodone (note -this note is in chart, not obtained by Dr. Kruger) Denies: Hx Depression, Hx Panic Disorder, Hx Schizophrenia, Hx Bipolar Disorder - Surgical History Surgery Procedure, Year, and Place: L4/5 LAMINOTOMY 2008 [facility] [place] - redo in 2015. KNEE ARTHROSCOPY 20+YRS AGO [facility] [place] Hx Anesthesia Reactions: No Infectious Disease History: No Infectious Disease History: Reports: Hx Shingles Denies: Hx Hepatitis, Hx Human Immunodeficiency Virus (HIV), History Other Infectious Disease, Traveled Outside the [place] in Last 30 Days - Family History Known Family History: Positive: Cardiac Disease, Hypertension, Other - sister with Tetralology of [place] Negative: Blood Disorder - Social History Alcohol Use: None Hx Substance Use: Yes Substance Use Type: Reports: None Substance Use Comment - Amount & Last Used: OXYCODONE PRN Hx Tobacco Use: No Smoking Status (MU): Never Smoked Tobacco Review of Systems Positive: Palpitations, Chest Pain Positive: Shortness Of Breath Neurological: Other - Shakiness Positive: Anxious, Other - Insomnia, panic attacks All Other Systems Reviewed And Are Negative: Yes Physical Exam - Summary Physical Exam Summary: Appearance: Well appearing, no pain distress Skin: warm, dry, reflects adequate perfusion Head/face: normal Eyes: EOMI, UDAY ENT: normal Neck: supple, non-tender Respiratory: CTA, breath sounds present Cardiovascular: RRR, pulses symmetrical Abdomen: non-tender, soft Bowel Sounds: present Musculoskeletal: normal, strength/ROM intact Neuro: normal, sensory motor intact, A&Ox3 Triage Information Reviewed: Yes Vital Signs On Initial Exam: Initial Vitals Temp Pulse Resp BP Pulse Ox 98.9 F 76 18 153/96 98 08/04/17 12:52 08/04/17 12:52 08/04/17 12:52 08/04/17 12:52 08/04/17 12:52 Vital Signs Reviewed: Yes Diagnostics - Vital Signs Vital Signs Temp Pulse Resp BP Pulse Ox 08/04/17 15:07 98.4 F 91 12 138/92 08/04/17 14:34 98.8 F 76 16 134/91 98 08/04/17 12:52 98.9 F 76 18 153/96 98 - Laboratory Lab Statement: Any lab studies that have been ordered have been reviewed, and results considered in the medical decision making process. - EKG 13:18 Cardiac Rate: NL - 64 pm EKG Rhythm: Sinus Rhythm ST Segment: Normal EKG Interpretation: Normal axis, normal intervals, early repolarization Re-Evaluation - Re-Evaluation First Eval Change: Improved - Feels much better after Vistaril Course/Dx - Course Course Of Treatment: Patient with history of anxiety treated just recently by his primary care physician with Xanax. He feels terrible on the Xanax and has discontinued it. He was given Vistaril here after a negative EKG and feels much better. We will trial him on Vistaril. - Differential Dx/Clinical Impression Provider Diagnosis: Generalized anxiety disorder Discharge - Sign-Out/Discharge Documenting (check all that apply): Discharge/Admit/Transfer - Discharge - Discharge Plan Condition: Improved Disposition: HOME Prescriptions: hydrOXYzine pamoate [Vistaril] 25 - 50 mg PO TID PRN #30 capsule PRN Reason: Anxiety Patient Education Materials: Anxiety (ED) Referrals: Ludin Bar MD [Primary Care Provider] - Additional Instructions: Discontinue Xanax. Follow up with her doctor on Sunday. Return if worse, new symptoms or other concerns. - Billing Disposition and Condition Condition: IMPROVED Disposition: Home The documentation as recorded by the Radha kim Jade accurately reflects the service I personally performed and the decisions made by me, Noe Broussard MD.
== END 2017-08-04 16:52 | disposition home or self-care (01) ==
LOC: ED 12:34
DX: F41.9 Anxiety disorder, unspecified (principal); R00.2 Palpitations; R07.9 Chest pain, unspecified; R06.02 Shortness of breath; I10 Essential (primary) hypertension
CPT/HCPCS: 93005; 99282; A9270-GY

== ENCOUNTER 2017-08-07 20:05 | Emergency (ER) | payer OTHER ==
[2017-08-07] MEDS ORDERED: NS 0.9% 1000 ML* 1,000 ML IV ONE ×2 (20:31→20:32)
[2017-08-07 20:56] LABS: ABS Basophils 0.1 10^3/ul (0-0.2); ABS Eosinophils 0 10^3/ul (0-0.6); ABS Lymphocytes 1.7 10^3/ul (1.0-4.8); ABS Monocytes 0.5 10^3/ul (0-0.8); ABS Neutrophils 4.4 10^3/ul (1.5-7.7); ABS Nucleated RBC 0 10^3/ul; Eosinophil % 0.5 % (0-6); Hematocrit 46 % (42-52); Hemoglobin 16.5 g/dl (14.0-18.0); Lymphocyte % 25.8 % (25-47); Mean Corpuscular HGB Conc 36 g/dl (31-36); Mean Corpuscular Hemoglobin 32 pg (27-31); Mean Corpuscular Volume 88 fL (80-94); Nucleated Red Blood Cells % 0.1; Platelet Count 263 10^3/ul (150-450); Red Blood Count 5.24 10^6/ul (4.00-5.40); Red Cell Distribution Width 13 % (10.5-15); White Blood Count 6.7 10^3/ul (3.5-10.8)
[2017-08-07 21:12] LABS: EGFR Non-African American 64.6 (>60)
[2017-08-07] MEDS ORDERED: Ketorolac INJ* 30 MG/ML 1 ML VIAL IV PUSH ONE (21:13)
[2017-08-07] MEDS ORDERED: Iohexol 350* (CONTRAST) 500 ML MDV IV ONE (21:44)
[2017-08-07] MEDS ORDERED: Al Hydrox/Mg Hydrox/Simet LIQ* 30 ML UDC PO ONE (23:12)
[2017-08-07] MEDS ORDERED: Lidocaine 2% VISCOUS* 15 ML UDC PO ONE (23:12)
[2017-08-07] MEDS ORDERED: Famotidine TAB* 20 MG PO ONE (23:12)
[2017-08-07] MEDS ORDERED: Famotidine TAB* 20 MG ONE (23:20)
[2017-08-07] MEDS ORDERED: Magnesium Oxide TAB* 400 MG PO ONE (23:52)
[2017-08-07] MEDS ORDERED: Magnesium Oxide TAB* 400 MG ONE (23:52)
[2017-08-07] MEDS ORDERED: Potassium Chlor TAB* 20 MEQ TAB.ER PO ONE (23:52)
[2017-08-08 00:03] VITALS: BP 142/90
--- NOTE | 2017-08-08 01:21 | ED ---
Minor Barreto Rebecca, scribed for Noe Broussard MD on 08/07/17 at 6 . HPI Chest Pain - HPI Summary HPI Summary: Pt is a 42 y/o M who presents to ED c/o CP. Pt has been experiencing CP for about 2 weeks, worse since today after doing yard work. Pain is located in the midsternum and right anterior region and characterized as tightness/pressure. Took 2 mg Diazepam at 1800. On triage, pain was moderate ranked 5/10. Aggravated by palpation, alleviated by nothing. Additionally notes mild SOB while outside. Denies edema. He was seen by [facility] for similar sx 11 days ago and he was admitted for observation, as well as 3 days ago after which he was D/ C with Dx of anxiety after symptoms improved with Vistaril. Has not had a stress test or traveled outside the country recently. He had also been seen recently by [facility] for dizziness. - History of Current Complaint Chief Complaint: EDChestPainROMI Time Seen by Provider: 08/07/17 20:19 Hx Obtained From: Patient Onset/Duration: Started Weeks Ago - 2 weeks, Still Present Current Severity: Moderate Pain Intensity: 5 Pain Scale Used: 0-10 Numeric Chest Pain Location: Mid Sternal, Right Anterior Character: Pressure/Squeezing, Tightness Aggravating Factor(s): Other: - Palpation Alleviating Factor(s): Nothing Associated Signs and Symptoms: Positive: Shortness of Breath - mild - Additional Pertinent History Primary Care Physician: [id number] - Allergy/Home Medications Allergies/Adverse Reactions: Allergies Allergy/AdvReac Type Severity Reaction Status Date / Time amoxicillin Allergy Rash Verified 08/07/17 20:17 cefaclor [From Ceclor] Allergy Unknown Verified 08/07/17 20:17 Reaction Details Home Medications: Home Medications Acetaminophen TAB* [Tylenol TAB*] 650 mg PO Q4H PRN 08/07/17 [History Confirmed 08/07/17] Clindamycin Cap(NF) [Clindamycin Cap 300 mg Cap(NF)] 300 mg PO TID 08/07/17 [ History Confirmed 08/07/17] Diazepam TAB(*) [Valium TAB(*)] 2 mg PO BID PRN 08/07/17 [History Confirmed ] Levothyroxine TAB* [Synthroid TAB*] 25 mcg PO QAM 08/07/17 [History Confirmed ] Lisinopril/HCTZ 20/12.5(NF) [Zestoretic 20/12.5(NF)] 1 tab PO QAM 08/07/17 [ History Confirmed 08/07/17] Meclizine TAB* [Antivert 12.5 TAB*] 12.5 mg PO TID PRN 08/07/17 [History Confirmed 08/07/17] Melatonin (NF) 10 mg PO BEDTIME 08/07/17 [History Confirmed 08/07/17] PMH/Surg Hx/FS Hx/Imm Hx Endocrine/Hematology History: Reports: Hx Thyroid Disease - HYPO Denies: Hx Anticoagulant Therapy, Hx Diabetes Cardiovascular History: Reports: Hx Hypertension Denies: Hx Congestive Heart Failure, Hx Deep Vein Thrombosis, Hx Myocardial Infarction, Hx Pacemaker/ICD, Hx Peripheral Vascular Disease Respiratory History: Reports: Hx Asthma - EXERCISE INDUCED Denies: Hx Chronic Obstructive Pulmonary Disease (COPD), Hx Lung Cancer, Hx Pneumonia, Hx Pulmonary Embolism GI History: Reports: Hx Gastroesophageal Reflux Disease Denies: Hx Gall Bladder Disease, Hx Gastrointestinal Bleed, Hx Ulcer, Hx Urosepsis History: Denies: Hx Kidney Stones, Hx Renal Disease Musculoskeletal History: Reports: Hx Back Problems - herniated discs Sensory History: Denies: Hx Contacts or Glasses, Hx Hearing Aid Opthamlomology History: Denies: Hx Contacts or Glasses Neurological History: Reports: Hx Headaches Denies: Hx Dementia, Hx Migraine, Hx Seizures, Hx Transient Ischemic Attacks (TIA) Psychiatric History: Reports: Hx Anxiety, Hx Substance Abuse - oxycodone (note -this note is in chart, not obtained by Dr. Kruger) Denies: Hx Depression, Hx Panic Disorder, Hx Schizophrenia, Hx Bipolar Disorder - Surgical History Surgery Procedure, Year, and Place: L4/5 LAMINOTOMY 2008 [facility] [place] redo [place] 2015. KNEE ARTHROSCOPY 20+YRS AGO [facility] Hx Anesthesia Reactions: No Infectious Disease History: No Infectious Disease History: Reports: Hx Shingles Denies: Hx Hepatitis, Hx Human Immunodeficiency Virus (HIV), History Other Infectious Disease, Traveled Outside the [place] in Last 30 Days - Family History Known Family History: Positive: Cardiac Disease, Hypertension, Other - sister with Tetralology of Fallot Negative: Blood Disorder - Social History Alcohol Use: None Hx Substance Use: Yes Substance Use Type: Reports: None Substance Use Comment - Amount & Last Used: OXYCODONE PRN Hx Tobacco Use: No Smoking Status (MU): Never Smoked Tobacco Review of Systems Positive: Chest Pain Positive: Shortness Of Breath Negative: Edema All Other Systems Reviewed And Are Negative: Yes Physical Exam - Summary Physical Exam Summary: Appearance: Well appearing, no pain distress Skin: warm, dry, reflects adequate perfusion Head/face: normal Eyes: EOMI, UDAY ENT: normal Neck: supple, non-tender Respiratory: CTA, breath sounds present Cardiovascular: RRR, pulses symmetrical, no murmurs, mild tenderness to palpation of the right side of the chest Abdomen: non-tender, soft Bowel Sounds: present Musculoskeletal: normal, strength/ROM intact Neuro: normal, sensory motor intact, A&Ox3 Psych: Slightly anxious Triage Information Reviewed: Yes Vital Signs On Initial Exam: Initial Vitals Temp Pulse Resp BP Pulse Ox 97.8 F 85 11 161/107 100 08/07/17 20:11 08/07/17 20:11 08/07/17 20:11 08/07/17 20:11 08/07/17 20:11 Vital Signs Reviewed: Yes Diagnostics - Vital Signs Vital Signs Temp Pulse Resp BP Pulse Ox 08/07/17 20:11 97.8 F 85 11 161/107 100 - Laboratory Lab Results: Lab Results 08/07/17 08/07/17 Range/Units 20:45 20:45 WBC 6.7 (3.5-10.8) 10^3/ul RBC 5.24 (4.00-5.40) 10^6/ul Hgb 16.5 (14.0-18.0) g/dl Hct 46 (42-52) % MCV 88 (80-94) fL MCH 32 H (27-31) pg MCHC 36 (31-36) g/dl RDW 13 (10.5-15) % Plt Count 263 (150-450) 10^3/ul MPV 7.0 L (7.4-10.4) um3 Neut % (Auto) 65.1 (38-83) % Lymph % (Auto) 25.8 (25-47) % [place] % (Auto) 7.8 H (0-7) % Eos % (Auto) 0.5 (0-6) % Baso % (Auto) 0.8 (0-2) % Absolute Neuts (auto) 4.4 (1.5-7.7) 10^3/ul Absolute Lymphs (auto) 1.7 (1.0-4.8) 10^3/ul Absolute Monos (auto) 0.5 (0-0.8) 10^3/ul Absolute Eos (auto) 0 (0-0.6) 10^3/ul Absolute Basos (auto) 0.1 (0-0.2) 10^3/ul Absolute Nucleated RBC 0 10^3/ul Nucleated RBC % 0.1 Sodium 134 L (135-145) mmol/L Potassium 3.2 L (3.5-5.0) mmol/L Chloride 100 L (101-111) mmol/L Carbon Dioxide 23 (22-32) mmol/L Anion Gap 11 (2-11) mmol/L BUN 13 (6-24) mg/dL Creatinine 1.24 H (0.67-1.17) mg/dL Est GFR ( Amer) 83.0 (>60) Est GFR (Non-Af Amer) 64.6 (>60) BUN/Creatinine Ratio 10.5 (8-20) Glucose 100 (70-100) mg/dL Calcium 9.9 (8.6-10.3) mg/dL Magnesium 2.0 (1.9-2.7) mg/dL Total Bilirubin 0.90 (0.2-1.0) mg/dL AST 22 (13-39) U/L ALT 27 (7-52) U/L Alkaline Phosphatase 40 (34-104) U/L Total Creatine Kinase 157 (10-223) U/L CK-MB (CK-2) 4.4 (0.6-6.3) ng/mL Troponin I 0.00 (<0.04) ng/mL Total Protein 7.3 (6.4-8.9) g/dL Albumin 4.8 (3.2-5.2) g/dL Globulin 2.5 (2-4) g/dL Albumin/Globulin Ratio 1.9 (1-3) Result Diagrams: 08/07/17 20:45 08/07/17 20:45 Lab Statement: Any lab studies that have been ordered have been reviewed, and results considered in the medical decision making process. - CT Chest/Thorax CTA CT Interpretation: No Acute Changes - There is no evidence of pulmonary embolism. There is no thoracic dissection. No pneumothorax. There is minimal atelectasis noted in the lower lobes. There are no pleural effusions seen. The heart size is borderline. There is trace pericardial effusion. ED physician reviewed this radiology report. CT Interpretation Completed By: Radiologist - EKG 2009 Cardiac Rate: NL - 88 bpm EKG Rhythm: Sinus Rhythm EKG Interpretation: Normal axis, normal intervals, prolonged QT EKG Comparison: Other - Changed from EKG, QT has lengthened by almost 200 ms 2342 Cardiac Rate: NL - 76 bpm EKG Rhythm: Sinus Rhythm ST Segment: Normal EKG Interpretation: Normal axis, normal QTC Re-Evaluation - Re-Evaluation First Eval Re-Evaluation Time: 21:30 Comment: Starting to feel better with fluids. Second Eval Re-Evaluation Time: 23:11 Comment: Pt continues to have slight discomfort. Third Eval Re-Evaluation Time: 23:38 Comment: At this time, pt has no symptoms. Chest Pain Course/Dx - Course Course Of Treatment: Patient with mostly persistent chest pain over the last 2 weeks or so. He has had several evaluations for this including hospital at admission. His troponins have been 0 throughout. His old records were reviewed. I saw him the other day when he was placed on medication for anxiety as a possible cause. This is really not made much impact on his symptoms. It was noticed that his blood pressure was a little elevated and that his previous labs had some hemoconcentration as well as increasing creatinine. Aspirin was held due to this. His hemoconcentration on today's labs as resolved and his renal function is returning to baseline. It appears maybe he was dehydrated, perhaps from environmental factors as well as his blood pressure medication. His initial EKG today showed a prolonged QTC. With IV hydration it normalized for the second EKG. Following treatment here, his symptoms were largely resolved. He is encouraged to follow up closely with his primary care provider and have outpatient stress testing. This is unlikely to be cardiac as troponin again is 0. CT of the chest was nondiagnostic. This perhaps could be medication side effect given that he is on lisinopril and hydrochlorothiazide combination. I have suggested to him that he discuss this with his primary care physician and seek an alternative. - Chest Pain Differential Diagnosis/HQI/PQRI: Acute AL, ACS, Angina, CHF, Chest Wall, GI Disease, Lower Respiratory Infection - Diagnoses Provider Diagnoses: Atypical chest pain, Hypokalemia, Hypertension Discharge - Sign-Out/Discharge Documenting (check all that apply): Discharge/Admit/Transfer - Discharge - Discharge Plan Condition: Good Disposition: HOME Prescriptions: Famotidine TAB* [Pepcid 20 MG TAB*] 20 mg PO BID #30 tab Patient Education Materials: Chest Pain (ED) Referrals: Ludin Bar MD [Primary Care Provider] - 3 Days Additional Instructions: Call first thing in the morning to follow up with your doctor. It is suggested that he have outpatient stress testing. Return with fever, persistent pain, shortness of breath, new symptoms or other concerns. - Billing Disposition and Condition Condition: GOOD Disposition: Home The documentation as recorded by the Minor kim Rebecca accurately reflects the service I personally performed and the decisions made by me, Noe Broussard MD.
--- NOTE | 2017-08-08 08:04 | RAD ---
Indication: Chest pain. Contrast: Administered 73.2 ml of OMNIPAQUE 350 mg/ml CTA of the chest was performed after IV contrast administration. Coronal and sagittal reconstructed images were obtained. The pulmonary arterial tree is well opacified. There are no filling defects present to suggest pulmonary embolus. There is no mediastinal or hilar adenopathy noted. The heart demonstrates no pericardial effusion. The trachea and major bronchi are patent. No evidence of pleural fluid, nodules or masses. Heart is of normal size without evidence of pericardial effusion. The aorta demonstrates no evidence of aortic dissection or aneurysmal dilatation. The visualized abdominal organs are grossly unremarkable. IMPRESSION: No evidence of pulmonary embolus is noted.
== END 2017-08-08 00:13 | disposition home or self-care (01) ==
LOC: ED 20:05
DX: R07.89 Other chest pain (principal); E87.6 Hypokalemia; I10 Essential (primary) hypertension; R06.02 Shortness of breath; Z88.1 Allergy status to other antibiotic agents; Z88.0 Allergy status to penicillin; E03.9 Hypothyroidism, unspecified; J45.990 Exercise induced bronchospasm; K21.9 Gastro-esophageal reflux disease without esophagitis; F41.9 Anxiety disorder, unspecified; Z82.49 Family history of ischemic heart disease and other diseases of the circulatory system
CPT/HCPCS: 36415; 71275; 80053; 82550; 82553; 83735; 84484; 85025; 86618; 87476; 87798; 93005; 96360; 96361; 99284; A9270-GY; Q9967

== ENCOUNTER 2017-08-19 20:23 | Emergency (ER) | payer OTHER ==
[2017-08-19] MEDS ORDERED: Lidocaine 2% VISCOUS* 15 ML UDC PO ONE (20:41)
[2017-08-19] MEDS ORDERED: Al Hydrox/Mg Hydrox/Simet LIQ* 30 ML UDC PO ONE (20:41)
[2017-08-19 21:27] LABS: ABS Basophils 0 10^3/ul (0-0.2); ABS Eosinophils 0.1 10^3/ul (0-0.6); ABS Lymphocytes 1.1 10^3/ul (1.0-4.8); ABS Monocytes 0.6 10^3/ul (0-0.8); ABS Neutrophils 6.9 10^3/ul (1.5-7.7); ABS Nucleated RBC 0 10^3/ul; Eosinophil % 0.6 % (0-6); Hematocrit 43 % (42-52); Hemoglobin 14.9 g/dl (14.0-18.0); Lymphocyte % 12.8 % (25-47); Mean Corpuscular HGB Conc 35 g/dl (31-36); Mean Corpuscular Hemoglobin 31 pg (27-31); Mean Corpuscular Volume 89 fL (80-94); Nucleated Red Blood Cells % 0; Platelet Count 248 10^3/ul (150-450); Red Blood Count 4.78 10^6/ul (4.00-5.40); Red Cell Distribution Width 13 % (10.5-15); White Blood Count 8.7 10^3/ul (3.5-10.8)
[2017-08-19 21:48] LABS: EGFR Non-African American 68.4 (>60)
[2017-08-19 22:16] VITALS: BP 138/87
--- NOTE | 2017-08-20 03:08 | ED ---
Maricruz Barreto Gabriel, scribed for Lucinda Day MD on 08/19/17 at 2050 . HPI Chest Pain - HPI Summary HPI Summary: This patient is a 42 year old M presenting to [facility] accompanied by his with a chief complaint of CP that began one month ago. The patient rates the pain 4/10 in severity and describes it as burning/tightness. He states the pain radiates into his shoulder blades. Patient denies n/v/d and diaphoresis. He states the pain began in the middle of the night a month ago and he believes it is anxiety related. He has been seen 6-7 in the ED for this pain in the last month. Pt has a stress test scheduled in 4 days. Hx HTN. He denies any aggravating factors. - History of Current Complaint Chief Complaint: EDChestPainROMI Time Seen by Provider: 08/19/17 20:33 Hx Obtained From: Patient Onset/Duration: Started Weeks Ago - 4, Still Present Timing: Constant Initial Severity: Mild Current Severity: Mild Pain Intensity: 4 Pain Scale Used: 0-10 Numeric Chest Pain Location: Diffuse Chest Pain Radiates: Yes Chest Pain Radiates To:: Back Character: Other: - burning Associated Signs and Symptoms: Positive: Negative - n/v/d, diaphoresis, and nausea. - Additional Pertinent History Primary Care Physician: [id number] - Allergy/Home Medications Allergies/Adverse Reactions: Allergies Allergy/AdvReac Type Severity Reaction Status Date / Time amoxicillin Allergy Rash Verified 08/07/17 20:17 cefaclor [From Ceclor] Allergy Unknown Verified 08/07/17 20:17 Reaction Details PMH/Surg Hx/FS Hx/Imm Hx Endocrine/Hematology History: Reports: Hx Thyroid Disease - HYPO Denies: Hx Anticoagulant Therapy, Hx Diabetes Cardiovascular History: Reports: Hx Hypertension Denies: Hx Congestive Heart Failure, Hx Deep Vein Thrombosis, Hx Myocardial Infarction, Hx Pacemaker/ICD, Hx Peripheral Vascular Disease Respiratory History: Reports: Hx Asthma - EXERCISE INDUCED Denies: Hx Chronic Obstructive Pulmonary Disease (COPD), Hx Lung Cancer, Hx Pneumonia, Hx Pulmonary Embolism GI History: Reports: Hx Gastroesophageal Reflux Disease Denies: Hx Gall Bladder Disease, Hx Gastrointestinal Bleed, Hx Ulcer, Hx Urosepsis History: Denies: Hx Kidney Stones, Hx Renal Disease Musculoskeletal History: Reports: Hx Back Problems - herniated discs Sensory History: Denies: Hx Contacts or Glasses, Hx Hearing Aid Opthamlomology History: Denies: Hx Contacts or Glasses Neurological History: Reports: Hx Headaches Denies: Hx Dementia, Hx Migraine, Hx Seizures, Hx Transient Ischemic Attacks (TIA) Psychiatric History: Reports: Hx Anxiety, Hx Substance Abuse - oxycodone (note -this note is in chart, not obtained by Dr. Kruger) Denies: Hx Depression, Hx Panic Disorder, Hx Schizophrenia, Hx Bipolar Disorder - Surgical History Surgery Procedure, Year, and Place: L4/5 LAMINOTOMY 2008 [facility] - redo in 2015. KNEE ARTHROSCOPY 20+YRS AGO [facility] Hx Anesthesia Reactions: No Infectious Disease History: Yes Infectious Disease History: Reports: Hx Shingles Denies: Hx Hepatitis, Hx Human Immunodeficiency Virus (HIV), History Other Infectious Disease, Traveled Outside the [place] in Last 30 Days - Family History Known Family History: Positive: Cardiac Disease, Hypertension, Other - sister with Tetralology of [place]ot Negative: Blood Disorder - Social History Alcohol Use: None Hx Substance Use: Yes Substance Use Type: Reports: None Substance Use Comment - Amount & Last Used: OXYCODONE PRN Hx Tobacco Use: No Smoking Status (MU): Never Smoked Tobacco Review of Systems Negative: Skin Diaphoresis Positive: Chest Pain Negative: Vomiting, Diarrhea, Nausea Positive: Anxious All Other Systems Reviewed And Are Negative: Yes Physical Exam - Summary Physical Exam Summary: VITAL SIGNS: Reviewed. GENERAL: Patient is a well-developed and nourished (MALE OR FEMALE) who is lying comfortable in the stretcher. Patient is not in any acute respiratory distress. HEAD AND FACE: No signs of trauma. No ecchymosis, hematomas or skull depressions. No sinus tenderness. EYES: PERRLA, EOMI x 2, No injected conjunctiva, no nystagmus. EARS: Hearing grossly intact. Ear canals and tympanic membranes are within normal limits. MOUTH: Oropharynx within normal limits. NECK: Supple, trachea is midline, no adenopathy, no JVD, no carotid bruit, no c- spine tenderness, neck with full ROM. CHEST: Symmetric, no tenderness at palpation LUNGS: Clear to auscultation bilaterally. No wheezing or crackles. CVS: Regular rate and rhythm, S1 and S2 present, no murmurs or gallops appreciated. ABDOMEN: Soft, non-tender. No signs of distention. No rebound no guarding, and no masses palpated. Bowel sounds are normal. EXTREMITIES: FROM in all major joints, no edema, no cyanosis or clubbing. NEURO: Alert and oriented x 3. No acute neurological deficits. Speech is normal and follows commands. SKIN: Dry and warm Triage Information Reviewed: Yes Vital Signs On Initial Exam: Initial Vitals Temp Pulse Resp BP Pulse Ox 98.7 F 84 20 157/108 100 08/19/17 20:25 08/19/17 20:25 08/19/17 20:25 08/19/17 20:25 08/19/17 20:25 Vital Signs Reviewed: Yes Diagnostics - Vital Signs Vital Signs Temp Pulse Resp BP Pulse Ox 08/19/17 20:35 70 157/99 100 08/19/17 20:25 98.7 F 84 20 157/108 100 - Laboratory Result Diagrams: 08/19/17 21:21 08/19/17 21:21 Lab Statement: Any lab studies that have been ordered have been reviewed, and results considered in the medical decision making process. - EKG 20:25 Cardiac Rate: NL EKG Rhythm: Sinus Rhythm - at 66 BPM EKG Interpretation: Normal axis. Normal interval. No ischemic changes Chest Pain Course/Dx - Course Assessment/Plan: This patient is a 42 year old M presenting to [facility] accompanied by his with a chief complaint of CP that began one month ago. The patient rates the pain 4/10 in severity and describes it as burning/ tightness. He states the pain radiates into his shoulder blades. Patient denies n/v/d and diaphoresis. He states the pain began in the middle of the night a month ago and he believes it is anxiety related. He has been seen 6-7 in the ED for this pain in the last month. Pt has a stress test scheduled in 4 days. Hx HTN. He denies any aggravating factors. An EKG reveals NSR. Test results with no significant abnormalities. In the ED course the patient was given a GI cocktail. Patient will be discharged and keep his stress test appointment this week. The patient is agreeable with this plan. - Diagnoses Provider Diagnoses: Atypical chest pain Discharge - Sign-Out/Discharge Documenting (check all that apply): Discharge/Admit/Transfer - Discharge Plan Condition: Stable Disposition: HOME Patient Education Materials: Chest Pain (DC) Referrals: Ludin Bar MD [Primary Care Provider] - Additional Instructions: Please keep your stress test appointment. RETURN TO THE ER FOR ANY NEW OR WORSENING SYMPTOMS The documentation as recorded by the Maricruz kim Gabriel accurately reflects the service I personally performed and the decisions made by , Lucinda Day MD.
== END 2017-08-19 22:23 | disposition home or self-care (01) ==
LOC: ED 20:23
DX: R07.89 Other chest pain (principal); I10 Essential (primary) hypertension; Z88.3 Allergy status to other anti-infective agents
CPT/HCPCS: 36415; 80053; 84484; 85025; 93005; 99282; A9270-GY

== ENCOUNTER 2017-09-07 03:10 | Emergency (ER) | payer OTHER ==
--- NOTE | 2017-09-07 04:13 | ED ---
HPI Chest Pain - HPI Summary HPI Summary: This is scribe Selwyn Taylorsain documenting for attending Dr. Apollo Harman MD. A 42 y/o male presents to ED c/o right-sided chest pain (was middle). According to the patient, he got up for work around 0115 when he experienced SOB and chest tightness/pain. Additionally he c/o back and sore neck pain. He noted that he has been dealing with anxiety for the past 6 weeks and have been in and out of ED with full-cardiac workups. He thinks the tightness he is experiencing today has something to do with it. He noted that there was this capsule-like lump in his chest 6 weeks ago and has been getting stressed out from that ever since. The lump was transient. Stress test done 1.5 weeks ago. In the ED room, the patient has a pulse of 64 BPM, O2 saturation of 98% and 149/98. Currently on 4mg Diazepam and Sertraline (1 pill per day). Heavier breathing seems to alleviate with laying down, however, movement aggravates the symptoms. - History of Current Complaint Chief Complaint: EDChestPainROMI Time Seen by Provider: 09/07/17 04:00 Hx Obtained From: Patient Onset/Duration: Started Hours Ago, Still Present Timing: Constant Initial Severity: Moderate Current Severity: Moderate Pain Intensity: 5 Pain Scale Used: 0-10 Numeric Chest Pain Location: Discrete at: - right sided, was middle earlier. Chest Pain Radiates To:: Back, Neck Character: Tightness Aggravating Factor(s): Movement Alleviating Factor(s): Nothing - Laying down Associated Signs and Symptoms: Positive: Chest Pain, Recent Stress, Shortness of Breath - Additional Pertinent History Primary Care Physician: [id number] - Allergy/Home Medications Allergies/Adverse Reactions: Allergies Allergy/AdvReac Type Severity Reaction Status Date / Time amoxicillin Allergy Rash Verified 08/07/17 20:17 cefaclor [From Ceclor] Allergy Unknown Verified 08/07/17 20:17 Reaction Details PMH/Surg Hx/FS Hx/Imm Hx Endocrine/Hematology History: Reports: Hx Thyroid Disease - HYPO Denies: Hx Anticoagulant Therapy, Hx Diabetes Cardiovascular History: Reports: Hx Hypertension Denies: Hx Congestive Heart Failure, Hx Deep Vein Thrombosis, Hx Myocardial Infarction, Hx Pacemaker/ICD, Hx Peripheral Vascular Disease Respiratory History: Reports: Hx Asthma - EXERCISE INDUCED Denies: Hx Chronic Obstructive Pulmonary Disease (COPD), Hx Lung Cancer, Hx Pneumonia, Hx Pulmonary Embolism GI History: Reports: Hx Gastroesophageal Reflux Disease Denies: Hx Gall Bladder Disease, Hx Gastrointestinal Bleed, Hx Ulcer, Hx Urosepsis History: Denies: Hx Kidney Stones, Hx Renal Disease Musculoskeletal History: Reports: Hx Back Problems - herniated discs Sensory History: Denies: Hx Contacts or Glasses, Hx Hearing Aid Opthamlomology History: Denies: Hx Contacts or Glasses Neurological History: Reports: Hx Headaches Denies: Hx Dementia, Hx Migraine, Hx Seizures, Hx Transient Ischemic Attacks (TIA) Psychiatric History: Reports: Hx Anxiety, Hx Substance Abuse - oxycodone (note -this note is in chart, not obtained by Dr. Kruger) Denies: Hx Depression, Hx Panic Disorder, Hx Schizophrenia, Hx Bipolar Disorder - Surgical History Surgery Procedure, Year, and Place: L4/5 [place] [facility] [place] K[place] ARTHROSCOPY 20+YRS A[place] [facility] [place]x Anesthesia Reactions: No Infectious Disease History: No Infectious Disease History: Reports: Hx Shingles Denies: Hx Hepatitis, Hx Human Immunodeficiency Virus (HIV), History Other Infectious Disease, Traveled Outside the [place] in Last 30 Days - Family History Known Family History: Positive: Cardiac Disease, Hypertension, Other - sister with Tetralology of Fallot Negative: Blood Disorder - Social History Alcohol Use: None Hx Substance Use: Yes Substance Use Type: Reports: None Substance Use Comment - Amount & Last Used: OXYCODONE PRN Hx Tobacco Use: No Smoking Status (MU): Never Smoked Tobacco Review of Systems Negative: Fever Positive: Chest Pain Positive: Shortness Of Breath Positive: Other - POSITIVE: back and neck pain. All Other Systems Reviewed And Are Negative: Yes Physical Exam - Summary Physical Exam Summary: Appearance: Well-appearing, Well-nourished, lying in bed comfortably Skin: Warm, dry, no obvious rash Eyes: sclera anicteric, no conjunctival pallor ENT: mucous membranes moist, pharynx appears normal Neck: Supple, nontender Respiratory: Clear to auscultation, no signs of respiratory distress Cardiovascular: Normal S1, S2. No murmurs. Normal distal pulses in tibial and radial bilaterally. Abdomen: Soft, nontender, normal active bowel sounds present Musculoskeletal: Normal, Strength/ROM Intact Neurological: A&Ox3, awake and alert, mentation is normal, speech is fluent and appropriate Psychiatric: affect is normal, does not appear anxious or depressed Triage Information Reviewed: Yes Vital Signs On Initial Exam: Initial Vitals Temp Pulse Resp BP Pulse Ox 99.1 F 67 16 148/91 100 09/07/17 03:11 09/07/17 03:11 09/07/17 03:11 09/07/17 03:11 09/07/17 03:11 Vital Signs Reviewed: Yes Diagnostics - Vital Signs Vital Signs Temp Pulse Resp BP Pulse Ox 09/07/17 03:11 99.1 F 67 16 148/91 100 - Laboratory Lab Statement: Any lab studies that have been ordered have been reviewed, and results considered in the medical decision making process. - EKG 0324 Cardiac Rate: Bradycardia - 58 BPM EKG Rhythm: Sinus Bradycardia Chest Pain Course/Dx - Chest Pain Differential Diagnosis/HQI/PQRI: Acute OK, ACS, Angina, Chest Wall - Diagnoses Provider Diagnoses: Chest pain Discharge - Sign-Out/Discharge Documenting (check all that apply): Patient Departure - DISCHARGE - Discharge Plan Condition: Good Disposition: HOME Patient Education Materials: Chest Pain (ED) Referrals: Ludin Bar MD [Primary Care Provider] - 2 Days Additional Instructions: RETURN TO ED FOR ANY NEW OR WORSENING SYMPTOMS. - Billing Disposition and Condition Condition: GOOD Disposition: Home
[2017-09-07 04:53] VITALS: BP 131/87
== END 2017-09-07 04:53 | disposition home or self-care (01) ==
LOC: ED 03:10
DX: R07.89 Other chest pain (principal); R06.02 Shortness of breath; M54.2 Cervicalgia; R00.1 Bradycardia, unspecified; Z88.1 Allergy status to other antibiotic agents; Z88.0 Allergy status to penicillin; Z82.49 Family history of ischemic heart disease and other diseases of the circulatory system
CPT/HCPCS: 93005; 99282

== ENCOUNTER 2017-09-16 17:22 | Emergency (ER) | payer OTHER ==
[2017-09-16 18:08] LABS: ABS Basophils 0.1 10^3/ul (0-0.2); ABS Eosinophils 0 10^3/ul (0-0.6); ABS Lymphocytes 1.6 10^3/ul (1.0-4.8); ABS Monocytes 0.5 10^3/ul (0-0.8); ABS Neutrophils 3.3 10^3/ul (1.5-7.7); ABS Nucleated RBC 0 10^3/ul; Eosinophil % 0.8 % (0-6); Hematocrit 45 % (42-52); Hemoglobin 15.5 g/dl (14.0-18.0); Lymphocyte % 28.7 % (25-47); Mean Corpuscular HGB Conc 35 g/dl (31-36); Mean Corpuscular Hemoglobin 31 pg (27-31); Mean Corpuscular Volume 89 fL (80-94); Nucleated Red Blood Cells % 0.1; Platelet Count 252 10^3/ul (150-450); Red Cell Distribution Width 13 % (10.5-15); White Blood Count 5.5 10^3/ul (3.5-10.8)
--- NOTE | 2017-09-16 18:28 | RAD ---
INDICATION: Chest pain COMPARISON: July 29, 2017 TECHNIQUE: An AP portable view obtained at 1815 hours is submitted. FINDINGS: Bones/Soft Tissues: There are no acute bony findings. Cardiomediastinal: The cardiomediastinal silhouette is normal. Lungs: There are no infiltrates. Pleura: There are no pleural effusions. Other: None IMPRESSION: NO ACTIVE DISEASE.
[2017-09-16 18:30] LABS: EGFR Non-African American 72.6 (>60)
--- NOTE | 2017-09-16 18:51 | ED ---
HPI Chest Pain - HPI Summary HPI Summary: This is judy Alonso documenting for attending Dr. Ector Avila MD. This patient is a 42 year old M presenting to [facility] accompanied by a female with a chief complaint of sharp CP with tightness since 2.5 months ago. The CP has recently migrated to the right side of his chest and turned into a sharp, throbbing pain. Patient reports SOB, throat tightness, anxiety, back pain, and diaphoresis. Patient denies arm pain, jaw pain, tingling, numbness, LE edema, and LE pain. PMHX HTN, anxiety. No SHx tobacco or EtOH use. Pt is currently getting used to new mood disorder medications. Pt did a stress test on September 12 and it was normal. - History of Current Complaint Chief Complaint: EDChestPainROMI Time Seen by Provider: 09/16/17 17:54 Hx Obtained From: Patient Onset/Duration: Started Weeks Ago - 2.5 mo Timing: Intermittent Initial Severity: Mild Current Severity: Moderate Pain Intensity: 0 Pain Scale Used: 0-10 Numeric Chest Pain Location: Mid Sternal Chest Pain Radiates: Yes Chest Pain Radiates To:: Other - right side of chest Character: Tightness Associated Signs and Symptoms: Positive: Chest Pain, Anxiety, Shortness of Breath, Diaphoresis, Back Pain. Negative: Numbness, Tingling, Edema - Additional Pertinent History Primary Care Physician: [id number] - Allergy/Home Medications Allergies/Adverse Reactions: Allergies Allergy/AdvReac Type Severity Reaction Status Date / Time amoxicillin Allergy Rash Verified 09/16/17 17:47 cefaclor [From [facility]] Allergy Unknown Verified 09/16/17 17:47 Reaction Details Home Medications: Home Medications Lexapro 5 mg (NF) 5 mg PO DAILY 09/16/17 [History Confirmed 09/16/17] Oxycodone HCl 5 mg PO PRN 09/16/17 [History] PMH/Surg Hx/FS Hx/Imm Hx Endocrine/Hematology History: Reports: Hx Thyroid Disease - HYPO Denies: Hx Anticoagulant Therapy, Hx Diabetes Cardiovascular History: Reports: Hx Hypertension Denies: Hx Congestive Heart Failure, Hx Deep Vein Thrombosis, Hx Myocardial Infarction, Hx Pacemaker/ICD, Hx Peripheral Vascular Disease Respiratory History: Reports: Hx Asthma - EXERCISE INDUCED Denies: Hx Chronic Obstructive Pulmonary Disease (COPD), Hx Lung Cancer, Hx Pneumonia, Hx Pulmonary Embolism GI History: Reports: Hx Gastroesophageal Reflux Disease Denies: Hx Gall Bladder Disease, Hx Gastrointestinal Bleed, Hx Ulcer, Hx Urosepsis History: Denies: Hx Kidney Stones, Hx Renal Disease Musculoskeletal History: Reports: Hx Back Problems - herniated discs Sensory History: Denies: Hx Contacts or Glasses, Hx Hearing Aid Opthamlomology History: Denies: Hx Contacts or Glasses Neurological History: Reports: Hx Headaches Denies: Hx Dementia, Hx Migraine, Hx Seizures, Hx Transient Ischemic Attacks (TIA) Psychiatric History: Reports: Hx Anxiety, Hx Substance Abuse - oxycodone (note -this note is in chart, not obtained by Dr. Kruger) Denies: Hx Depression, Hx Panic Disorder, Hx Schizophrenia, Hx Bipolar Disorder - Surgical History Surgery Procedure, Year, and Place: L4/5 LAMINOTOMY 2008 [facility] - redo in 2015. KNEE ARTHROSCOPY 20+YRS AGO [facility] Hx Anesthesia Reactions: No Infectious Disease History: No Infectious Disease History: Reports: Hx Shingles Denies: Hx Hepatitis, Hx Human Immunodeficiency Virus (HIV), History Other Infectious Disease, Traveled Outside the [place] in Last 30 Days - Family History Known Family History: Positive: Cardiac Disease, Hypertension, Other - sister with Tetralology of Fall[place] Negative: Blood Disorder - Social History Alcohol Use: None Hx Substance Use: Yes Substance Use Type: Reports: Prescribed Substance Use Comment - Amount & Last Used: OXYCODONE PRN Hx Tobacco Use: No Smoking Status (MU): Never Smoked Tobacco Review of Systems Positive: Skin Diaphoresis Positive: Chest Pain Positive: Shortness Of Breath Positive: Other - Back pain. Negative: Edema Negative: Numbness Positive: Anxious All Other Systems Reviewed And Are Negative: Yes Physical Exam - Summary Physical Exam Summary: Constitutional: Well-developed, Well-nourished, Alert. Skin: Warm, Dry HENT: Normocephalic; Atraumatic Eyes: Conjunctiva normal Neck: Musculoskeletal ROM normal neck. Cardio: Rhythm regular, rate normal, Heart sounds normal; Intact distal pulses; The pedal pulses are 2+ and symmetric. Radial pulses are 2+ and symmetric. Pulmonary/Chest wall: Effort normal. Abd: Soft. Musculoskeletal: normal Neuro: Alert, Oriented x3 Psych: Mood and affect Normal Triage Information Reviewed: Yes Vital Signs On Initial Exam: Initial Vitals Temp Pulse Resp BP Pulse Ox 98.6 F 61 14 151/97 99 09/16/17 17:27 09/16/17 17:27 09/16/17 17:27 09/16/17 17:27 09/16/17 17:27 Vital Signs Reviewed: Yes Diagnostics - Vital Signs Vital Signs Temp Pulse Resp BP Pulse Ox 09/16/17 17:48 57 12 96 09/16/17 17:47 53 10 139/88 98 09/16/17 17:27 98.6 F 61 14 151/97 99 - Laboratory Lab Results: Lab Results 09/16/17 09/16/17 09/16/17 Range/Units 18:02 18:02 18:02 WBC 5.5 (3.5-10.8) 10^3/ul RBC 5.00 (4.00-5.40) 10^6/ul Hgb 15.5 (14.0-18.0) g/dl Hct 45 (42-52) % MCV 89 (80-94) fL MCH 31 (27-31) pg MCHC 35 (31-36) g/dl RDW 13 (10.5-15) % Plt Count 252 (150-450) 10^3/ul MPV 7.0 L (7.4-10.4) um3 Neut % (Auto) 60.6 (38-83) % Lymph % (Auto) 28.7 (25-47) % [place] % (Auto) 8.9 H (0-7) % Eos % (Auto) 0.8 (0-6) % Baso % (Auto) 1.0 (0-2) % Absolute Neuts (auto) 3.3 (1.5-7.7) 10^3/ul Absolute Lymphs (auto) 1.6 (1.0-4.8) 10^3/ul Absolute Monos (auto) 0.5 (0-0.8) 10^3/ul Absolute Eos (auto) 0 (0-0.6) 10^3/ul Absolute Basos (auto) 0.1 (0-0.2) 10^3/ul Absolute Nucleated RBC 0 10^3/ul Nucleated RBC % 0.1 Sodium 135 (135-145) mmol/L Potassium 3.4 L (3.5-5.0) mmol/L Chloride 102 (101-111) mmol/L Carbon Dioxide 24 (22-32) mmol/L Anion Gap 9 (2-11) mmol/L BUN 13 (6-24) mg/dL Creatinine 1.12 (0.67-1.17) mg/dL Est GFR ( Amer) 87.9 (>60) Est GFR (Non-Af Amer) 72.6 (>60) BUN/Creatinine Ratio 11.6 (8-20) Glucose 101 H (70-100) mg/dL Lactic Acid 1.1 (0.5-2.0) mmol/L Calcium 10.0 (8.6-10.3) mg/dL Total Bilirubin 0.70 (0.2-1.0) mg/dL AST 17 (13-39) U/L ALT 16 (7-52) U/L Alkaline Phosphatase 34 (34-104) U/L Troponin I 0.00 (<0.04) ng/mL Total Protein 7.1 (6.4-8.9) g/dL Albumin 4.6 (3.2-5.2) g/dL Globulin 2.5 (2-4) g/dL Albumin/Globulin Ratio 1.8 (1-3) Result Diagrams: 09/16/17 18:02 09/16/17 18:02 Lab Statement: Any lab studies that have been ordered have been reviewed, and results considered in the medical decision making process. - EKG 18:08 Cardiac Rate: Bradycardia EKG Rhythm: Sinus Bradycardia - 53 bpm EKG Interpretation: No STEMI Chest Pain Course/Dx - Course Course Of Treatment: This is scribe Kt Alonso documenting for attending Dr. Ector Avila MD. This patient is a 42 year old M presenting to [facility] accompanied by a female with a chief complaint of sharp CP with tightness since 2.5 months ago. The CP has recently migrated to the right side of his chest and turned into a sharp, throbbing pain. Patient reports SOB, throat tightness, anxiety, back pain, and diaphoresis. Patient denies arm pain, jaw pain, tingling , numbness, LE edema, and LE pain. PMHX HTN, anxiety. No SHx tobacco or EtOH use. Pt is currently getting used to new mood disorder medications. Pt did a stress test on September 12 and it was normal. Pt has a history of HTN and anxiety. Since his stress test is normal, and his symptoms revolve around anxiety, it is likely they are coming from anxiety. CXR reveals, per radiologist, NO ACTIVE DISEASE. ED physician has reviewed this radiology report. - Diagnoses Provider Diagnoses: Chest pain, Anxiety Discharge - Sign-Out/Discharge Documenting (check all that apply): Patient Departure - Discharge Plan Condition: Good Disposition: HOME Patient Education Materials: Chest Pain (ED), Anxiety (ED) Referrals: Ludin Bar MD [Primary Care Provider] - 2 Days Additional Instructions: RETURN TO THE EMERGENCY DEPARTMENT FOR CHANGING OR WORSENING SYMPTOMS
[2017-09-16 19:31] VITALS: BP 145/87
== END 2017-09-16 19:29 | disposition home or self-care (01) ==
LOC: ED 17:22
DX: R07.89 Other chest pain (principal); F41.9 Anxiety disorder, unspecified; R00.1 Bradycardia, unspecified; R06.02 Shortness of breath; R61 Generalized hyperhidrosis; M54.9 Dorsalgia, unspecified; Z88.1 Allergy status to other antibiotic agents; Z88.0 Allergy status to penicillin; Z82.49 Family history of ischemic heart disease and other diseases of the circulatory system
CPT/HCPCS: 36415; 71045; 80053; 83605; 84484; 85025; 93005; 99283

== ENCOUNTER 2017-09-20 21:02 | Emergency (ER) | payer OTHER ==
[2017-09-20 22:17] VITALS: BP 135/82
--- NOTE | 2017-09-20 22:31 | ED ---
HPI Chest Pain - HPI Summary HPI Summary: This is judy Barroso documenting for attending Lucinda Day MD. This patient is a 42 year old MF presenting to ED with a chief complaint of R- sided CP since a couple months ago and has been in and out of the ED for the same complaints. The CC is described as medial CP radiating to the R chest and into the R shoulder. The patient rates the pain 6/10 in severity. Symptoms aggravated by exertion. Symptoms alleviated by nothing (took diazapan, 2mg, took 1 pill today at 1700 which didnt help the pain). The patient saw his PCP last week and has an appointment follow up for his medications on 09/25/17. - History of Current Complaint Chief Complaint: EDChestPainROMI Time Seen by Provider: 09/20/17 22:17 Hx Obtained From: Patient Onset/Duration: Started Weeks Ago - since a couple months ago, Still Present Timing: Constant, Lasting Weeks - since a couple months ago Initial Severity: Moderate Current Severity: Moderate Pain Intensity: 6 Pain Scale Used: 0-10 Numeric Chest Pain Location: Discrete at: - medial CP Chest Pain Radiates: Yes Chest Pain Radiates To:: Other - radiating to the R chest and into the R shoulder Aggravating Factor(s): Exertion Alleviating Factor(s): Nothing - Additional Pertinent History Primary Care Physician: [id number] - Allergy/Home Medications Allergies/Adverse Reactions: Allergies Allergy/AdvReac Type Severity Reaction Status Date / Time amoxicillin Allergy Rash Verified 09/16/17 17:47 cefaclor [From Ceclor] Allergy Unknown Verified 09/16/17 17:47 Reaction Details PMH/Surg Hx/FS Hx/Imm Hx Endocrine/Hematology History: Reports: Hx Thyroid Disease - HYPO Denies: Hx Anticoagulant Therapy, Hx Diabetes Cardiovascular History: Reports: Hx Hypertension Denies: Hx Congestive Heart Failure, Hx Deep Vein Thrombosis, Hx Myocardial Infarction, Hx Pacemaker/ICD, Hx Peripheral Vascular Disease Respiratory History: Reports: Hx Asthma - EXERCISE INDUCED Denies: Hx Chronic Obstructive Pulmonary Disease (COPD), Hx Lung Cancer, Hx Pneumonia, Hx Pulmonary Embolism GI History: Reports: Hx Gastroesophageal Reflux Disease Denies: Hx Gall Bladder Disease, Hx Gastrointestinal Bleed, Hx Ulcer, Hx Urosepsis History: Denies: Hx Kidney Stones, Hx Renal Disease Musculoskeletal History: Reports: Hx Back Problems - herniated discs Sensory History: Denies: Hx Contacts or Glasses, Hx Hearing Aid Opthamlomology History: Denies: Hx Contacts or Glasses Neurological History: Reports: Hx Headaches Denies: Hx Dementia, Hx Migraine, Hx Seizures, Hx Transient Ischemic Attacks (TIA) Psychiatric History: Reports: Hx Anxiety, Hx Substance Abuse - oxycodone (note -this note is in chart, not obtained by Dr. Kruger) Denies: Hx Depression, Hx Panic Disorder, Hx Schizophrenia, Hx Bipolar Disorder - Surgical History Surgery Procedure, Year, and Place: L4/5 LAMINOTOMY 2008 [facility] [place] in 2015. KNEE ARTHROSCOPY 20+YRS AGO [facility] [place] Hx Anesthesia Reactions: No Infectious Disease History: Yes Infectious Disease History: Reports: Hx Shingles Denies: Hx Hepatitis, Hx Human Immunodeficiency Virus (HIV), History Other Infectious Disease, Traveled Outside the [place] in Last 30 Days - Family History Known Family History: Positive: Cardiac Disease, Hypertension, Other - sister with Tetralology of [place] Negative: Blood Disorder - Social History Alcohol Use: None Hx Substance Use: Yes Substance Use Type: Reports: Prescribed Substance Use Comment - Amount & Last Used: OXYCODONE PRN Hx Tobacco Use: No Smoking Status (MU): Never Smoked Tobacco Review of Systems Negative: Fever Positive: Chest Pain - medial CP radiating to the R chest and into the R shoulder All Other Systems Reviewed And Are Negative: Yes Physical Exam - Summary Physical Exam Summary: VITAL SIGNS: Reviewed. GENERAL: Patient is a well-developed and nourished MALE who is lying comfortable in the stretcher. Patient is not in any acute respiratory distress. HEAD AND FACE: No signs of trauma. No ecchymosis, hematomas or skull depressions. No sinus tenderness. EYES: PERRLA, EOMI x 2, No injected conjunctiva, no nystagmus. EARS: Hearing grossly intact. Ear canals and tympanic membranes are within normal limits. MOUTH: Oropharynx within normal limits. NECK: Supple, trachea is midline, no adenopathy, no JVD, no carotid bruit, no c- spine tenderness, neck with full ROM. CHEST: Symmetric, no tenderness at palpation LUNGS: Clear to auscultation bilaterally. No wheezing or crackles. CVS: Regular rate and rhythm, S1 and S2 present, no murmurs or gallops appreciated. ABDOMEN: Soft, non-tender. No signs of distention. No rebound no guarding, and no masses palpated. Bowel sounds are normal. EXTREMITIES: FROM in all major joints, no edema, no cyanosis or clubbing. NEURO: Alert and oriented x 3. No acute neurological deficits. Speech is normal and follows commands. SKIN: Dry and warm Triage Information Reviewed: Yes Vital Signs On Initial Exam: Initial Vitals Temp Pulse Resp BP Pulse Ox 98.4 F 76 20 149/94 98 09/20/17 21:03 09/20/17 21:03 09/20/17 21:03 09/20/17 21:03 09/20/17 21:03 Vital Signs Reviewed: Yes Diagnostics - Vital Signs Vital Signs Temp Pulse Resp BP Pulse Ox 09/20/17 22:10 59 20 135/82 98 09/20/17 21:03 98.4 F 76 20 149/94 98 - Laboratory Lab Statement: Any lab studies that have been ordered have been reviewed, and results considered in the medical decision making process. - EKG 2109 Cardiac Rate: NL - 64 BPM EKG Rhythm: Sinus Rhythm EKG Interpretation: Normal axis. Normal interval. No ischemic changes. Chest Pain Course/Dx - Course Assessment/Plan: This patient is a 42 yo M with hx of anxiety. He has been in and out of the ED with the same complaints as he is here for today. The exam is always negative. The patient is on diazepam. The patient is always in the same place: medial CP radiating to the R chest and into the R shoulder. He will be D/ C home with dx of anxiety and atypical CP. Patient understands and agrees. - Chest Pain Differential Diagnosis/HQI/PQRI: Other: - atypical CP - Diagnoses Provider Diagnoses: Atypical chest pain Discharge - Sign-Out/Discharge Documenting (check all that apply): Patient Departure - Discharge Plan Condition: Stable Disposition: HOME Patient Education Materials: Chest Pain (ED) Referrals: Ludin Bar MD [Primary Care Provider] - (Follow up at your appointment with your primary care physician.) Additional Instructions: RETURN TO THE EMERGENCY DEPARTMENT FOR CHANGING OR WORSENING SYMPTOMS.
== END 2017-09-20 22:57 | disposition home or self-care (01) ==
LOC: ED 21:02
DX: R07.89 Other chest pain (principal); F41.9 Anxiety disorder, unspecified; M25.511 Pain in right shoulder; Z79.899 Other long term (current) drug therapy; Z88.3 Allergy status to other anti-infective agents
CPT/HCPCS: 93005; 99282

== ENCOUNTER 2017-09-23 12:33 | Emergency (ER) | payer OTHER ==
[2017-09-23 12:53] VITALS: BP 156/85
--- NOTE | 2017-09-23 13:55 | UC ---
Cardiac HPI - HPI Summary HPI Summary: c/o right chest pain for the past 10 weeks, starting in June when he felt a little lump the size of a capsule on right chest. He doesnt feel it anymore but has been having anxiety and chest pain ever since. Some days it is not present, other days it is there, intermittent, sharp, lasting minutes. States ibuprofen alleviates it most of the time. Denies trauma or exertion. - History of Current Complaint Chief Complaint: UCChestPain Stated Complaint: CHEST PAIN Time Seen by Provider: 09/23/17 13:09 Hx Obtained From: Patient Onset/Duration: Gradual Onset, Lasting Weeks Timing: Intermittent Episodes Lasting: - min Initial Severity: Moderate Current Severity: Moderate Pain Intensity: 7 Chest Pain Location: Discrete at:, Right Anterior Character: Heaviness, Sharp/Stabbing Aggravating Factor(s): Deep Breaths Alleviating Factor(s): Nothing Associated Signs & Symptoms: Positive: Negative - Risk Factors Pulmonary Embolism Risk Factors: Negative Cardiac Risk Factors: Negative Atrial Fibrillation: Negative TAD Risk Factors: Negative - Allergy/Home Medications Allergies/Adverse Reactions: Allergies Allergy/AdvReac Type Severity Reaction Status Date / Time amoxicillin Allergy Rash Verified 09/23/17 12:52 cefaclor [From Ceclor] Allergy Unknown Verified 09/23/17 12:52 Reaction Details Home Medications: Home Medications Fluticasone NASAL SPRAY 50MCG* [Flonase NASAL SPRAY 50MCG*] 2 spray BOTH NARES DAILY 09/23/17 [History Confirmed 09/23/17] Ibuprofen TAB* [Advil TAB*] 400 mg PO Q6H PRN 09/23/17 [History Confirmed ] PMH/Surg Hx/FS Hx/Imm Hx Previously Healthy: Yes Psychological History: Anxiety Other History Of: Negative For: HIV, Hepatitis B, Hepatitis C, Anticoagulant Therapy - Surgical History Surgical History: Yes Surgery Procedure, Year, and Place: L4/5 LAMINOTOMY 2008 [facility] [place] - redo in 2015. KNEE ARTHROSCOPY 20+YRS AGO [facility] [place] - Family History Known Family History: Positive: Cardiac Disease, Hypertension, Other - sister with Tetralology of Fallot Negative: Blood Disorder - Social History Alcohol Use: Rare Substance Use Type: None Substance Use Comment - Amount & Last Used: OXYCODONE PRN Smoking Status (MU): Never Smoked Tobacco Review of Systems Constitutional: Negative Musculoskeletal: Myalgia All Other Systems Reviewed And Are Negative: Yes Physical Exam Triage Information Reviewed: Yes Appearance: Well-Appearing, No Pain Distress, Well-Nourished Vital Signs: Initial Vital Signs Temp 99.6 F 09/23/17 12:47 Pulse 65 09/23/17 12:47 Resp 16 09/23/17 12:47 BP 156/85 09/23/17 12:47 Pulse Ox 100 09/23/17 12:47 Vital Signs Reviewed: Yes Eyes: Positive: Conjunctiva Clear ENT: Positive: Hearing grossly normal, Pharynx normal Neck: Positive: Supple, Nontender, No Lymphadenopathy Respiratory: Positive: Chest non-tender, Lungs clear, Normal breath sounds, No respiratory distress Cardiovascular: Positive: RRR, No Murmur, Pulses Normal, Brisk Capillary Refill Abdomen Description: Positive: Nontender, No Organomegaly, Soft Musculoskeletal: Positive: Strength Intact, ROM Intact, No Edema, Other: - ledbetter negative, ss negative, no impingement sign, no breast masses, no axillary LNE, tender upon palpation pectoral muscle. Minimal misalignment of T2- T3 Skin Exam: Normal - Assessment/Plan Course Of Treatment: patient with right pectoral pain, to start tizanidine and ibuprofen as needed, f/u with PCP in 2 days as scheduled. Minimal misalignment of T3 for chiropractor evaluation - Clinical Impression Provider Diagnoses: right pectoral pain. Elevated BP without history of HTN. Anxiety Discharge - Sign-Out/Discharge Documenting (check all that apply): Patient Departure - Discharge Plan Condition: Good Disposition: HOME Referrals: Ludin Bar MD [Primary Care Provider] - - Billing Disposition and Condition Condition: GOOD Disposition: Home
== END 2017-09-23 14:05 | disposition home or self-care (01) ==
LOC: UCEAST 12:33
DX: R07.89 Other chest pain (principal); R03.0 Elevated blood-pressure reading, without diagnosis of hypertension; F41.9 Anxiety disorder, unspecified; Z88.1 Allergy status to other antibiotic agents; Z88.0 Allergy status to penicillin; Z82.49 Family history of ischemic heart disease and other diseases of the circulatory system
CPT/HCPCS: 93005; 99212; G0463

== ENCOUNTER 2017-09-26 05:39 | Emergency (ER) | payer OTHER ==
[2017-09-26 05:46] VITALS: BP 147/97
--- NOTE | 2017-09-26 11:36 | ED ---
Back Pain - HPI Summary HPI Summary: Patient is a 42-year-old male with history of anxiety and several recent presentations to the ED and urgent care with chest pain and back pain. He states the back pain he is feeling currently is new. Denies any trauma or injury. He states there is slight pain just to the right of his cervical spine over C5. Pain is been present for the past few days. He has a physical therapy appointment next week and states "I cannot wait that long." He appears very anxious on arrival. He denies any chest pain currently. Denies any fevers , sweats, chills. Full range of motion of the neck. - History of Current Complaint Chief Complaint: EDBackInjuryPain Stated Complaint: BACK PAIN Time Seen by Provider: 09/26/17 05:47 Hx Obtained From: Patient Onset/Duration: Sudden Onset Onset/Duration: Started Hours Ago Timing: Constant Back Pain Location: Is Discrete @ - cervical spine area Severity Initially: Moderate Severity Currently: Moderate Pain Intensity: 0 Pain Scale Used: 0-10 Numeric Character: Aching Alleviating Symptom(s): Rest, Position Associated Signs And Symptoms: Negative: Swelling, Redness, Weakness, Numbness, Bladder Incontinence, Bowel Incontinence Related History: Previous Back Injury - Risk Factors AAA Risk Factors: Negative TAD Risk Factors: Negative Cauda Equina Risk Factors: Negative Epidural Abscess Risk Factors: Negative - Allergies/Home Medications Allergies/Adverse Reactions: Allergies Allergy/AdvReac Type Severity Reaction Status Date / Time amoxicillin Allergy Rash Verified 09/26/17 05:45 cefaclor [From Ceclor] Allergy Unknown Verified 09/26/17 05:45 Reaction Details PMH/Surg Hx/FS Hx/Imm Hx Previously Healthy: Yes Endocrine/Hematology History: Reports: Hx Thyroid Disease - HYPO Denies: Hx Anticoagulant Therapy, Hx Diabetes Cardiovascular History: Reports: Hx Hypertension Denies: Hx Congestive Heart Failure, Hx Deep Vein Thrombosis, Hx Myocardial Infarction, Hx Pacemaker/ICD, Hx Peripheral Vascular Disease Respiratory History: Reports: Hx Asthma - EXERCISE INDUCED Denies: Hx Chronic Obstructive Pulmonary Disease (COPD), Hx Lung Cancer, Hx Pneumonia, Hx Pulmonary Embolism GI History: Reports: Hx Gastroesophageal Reflux Disease Denies: Hx Gall Bladder Disease, Hx Gastrointestinal Bleed, Hx Ulcer, Hx Urosepsis History: Denies: Hx Kidney Stones, Hx Renal Disease Musculoskeletal History: Reports: Hx Back Problems - herniated discs Sensory History: Denies: Hx Contacts or Glasses, Hx Hearing Aid Opthamlomology History: Denies: Hx Contacts or Glasses Neurological History: Reports: Hx Headaches Denies: Hx Dementia, Hx Migraine, Hx Seizures, Hx Transient Ischemic Attacks (TIA) Psychiatric History: Reports: Hx Anxiety, Hx Substance Abuse - oxycodone (note -this note is in chart, not obtained by Dr. Kruger) Denies: Hx Depression, Hx Panic Disorder, Hx Schizophrenia, Hx Bipolar Disorder - Surgical History Surgery Procedure, Year, and Place: L4/5 [place] [facility] [place]. KNEE ARTHROSCOPY 20+YRS [place] [facility] [place] Hx Anesthesia Reactions: No - Immunization History Hx Pertussis Vaccination: No Immunizations Up to Date: Unable to Obtain/Confirm Infectious Disease History: No Infectious Disease History: Reports: Hx Shingles Denies: Hx Hepatitis, Hx Human Immunodeficiency Virus (HIV), History Other Infectious Disease, Traveled Outside the [place] in Last 30 Days - Family History Known Family History: Positive: Cardiac Disease, Hypertension, Other - sister with Tetralology of Fallot Negative: Blood Disorder - Social History Occupation: Employed Full-time Lives: With Family Alcohol Use: Rare Hx Substance Use: Yes Substance Use Type: Reports: None Substance Use Comment - Amount & Last Used: OXYCODONE PRN Hx Tobacco Use: No Smoking Status (MU): Never Smoked Tobacco Review of Systems Constitutional: Negative Negative: Fever, Chills, Fatigue, Skin Diaphoresis Negative: Epistaxis, Dental Pain Negative: Palpitations, Chest Pain Genitourinary: Negative Positive: no symptoms reported, see HPI Positive: Myalgia Skin: Negative Psychological: Normal All Other Systems Reviewed And Are Negative: Yes Physical Exam Triage Information Reviewed: Yes Vital Signs On Initial Exam: Initial Vitals Temp Pulse Resp BP Pulse Ox 98.4 F 73 15 147/97 98 09/26/17 05:43 09/26/17 05:43 09/26/17 05:43 09/26/17 05:43 09/26/17 05:43 Vital Signs Reviewed: Yes Appearance: Positive: Well-Appearing, Well-Nourished Skin: Positive: Warm, Skin Color Reflects Adequate Perfusion Head/Face: Positive: Normal Head/Face Inspection Eyes: Positive: EOMI, UDAY, Conjunctiva Clear Neck: Positive: Supple, No Lymphadenopathy Respiratory/Lung Sounds: Positive: Clear to Auscultation, Breath Sounds Present Cardiovascular: Positive: RRR, Pulses are Symmetrical in both Upper and Lower Extremities Musculoskeletal: Positive: Strength/ROM Intact, Pain @ - just to the R of the C5 spine Neurological: Positive: Speech Normal Psychiatric: Positive: Normal, Affect/Mood Appropriate AVPU Assessment: Alert Diagnostics - Vital Signs Vital Signs Temp Pulse Resp BP Pulse Ox 09/26/17 06:16 98.4 F 73 15 147/97 98 09/26/17 05:43 98.4 F 73 15 147/97 98 - Laboratory Lab Statement: Any lab studies that have been ordered have been reviewed, and results considered in the medical decision making process. Back Pain Course/Dx - Course Course Of Treatment: During the course of treatment, the patient's evaluated for upper back/neck pain. He denies any chest pain at this time, however has been endorsing frequent bouts of chest pain over the past several months with several visits to the ED. He endorses lower back pain in the past and has had 2 spinal surgeries. Today he states he is having upper back pain without injury. He has PT which she will start next week. He has been taking ibuprofen and hydrocodone at home without relief. On physical examination, there is no step-off noted. No ecchymosis or erythema to the area. No pain directly on palpation over the cervical or thoracic spine. He appears anxious. Likely muscle spasm. There appears to be no indication for a CT or an MRI. I have given him a note for work for today and tomorrow, however he will continue his ibuprofen, tizanidine at home and moist heat. - Diagnoses Differential Diagnosis/HQI/PQRI: Positive: Strain, Sprain Provider Diagnoses: Muscle spasm Discharge - Sign-Out/Discharge Documenting (check all that apply): Patient Departure - Discharge Plan Condition: Stable Disposition: HOME Patient Education Materials: Cervical Radiculopathy (ED) Forms: *Work Release Referrals: Ludin Bar MD [Primary Care Provider] - Additional Instructions: You most likely have a pinched nerve in the cervical region Ibuprofen 600mg with tylenol 650mg used intermittently will help moist heat to the area several times per day Continue with your muscle relaxers Physical therapy If this pain continues - you may need the MRI to determine the problem - Billing Disposition and Condition Condition: STABLE Disposition: Home
== END 2017-09-26 06:16 | disposition home or self-care (01) ==
LOC: ED 05:39
DX: M62.838 Other muscle spasm (principal); M54.89 Other dorsalgia; M54.2 Cervicalgia; F41.9 Anxiety disorder, unspecified; Z98.890 Other specified postprocedural states; Z88.3 Allergy status to other anti-infective agents
CPT/HCPCS: 99281

== ENCOUNTER 2017-09-26 16:55 | Emergency (ER) | payer OTHER ==
[2017-09-26 17:29] LABS: ABS Basophils 0.1 10^3/ul (0-0.2); ABS Eosinophils 0.1 10^3/ul (0-0.6); ABS Lymphocytes 1.8 10^3/ul (1.0-4.8); ABS Monocytes 0.5 10^3/ul (0-0.8); ABS Neutrophils 4.3 10^3/ul (1.5-7.7); ABS Nucleated RBC 0 10^3/ul; Eosinophil % 1.1 % (0-6); Hematocrit 47 % (42-52); Hemoglobin 16.3 g/dl (14.0-18.0); Lymphocyte % 26.5 % (25-47); Mean Corpuscular HGB Conc 35 g/dl (31-36); Mean Corpuscular Hemoglobin 31 pg (27-31); Mean Corpuscular Volume 90 fL (80-94); Mean Platelet Volume 7.3 um3 (7.4-10.4); Nucleated Red Blood Cells % 0.1; Platelet Count 268 10^3/ul (150-450); Red Cell Distribution Width 13 % (10.5-15); White Blood Count 6.8 10^3/ul (3.5-10.8)
--- OUTSIDE RECORDS SUMMARY | 2017-09-26 17:41 | XMS REPORT ---
:1975 External Reference #:[id number] Author Organization [facility] Address [address] [place] [address] Phone [phone] Care Team Providers Name Role Phone Ludin Bar MD Primary Care Physician Unavailable Payers Type Date Identification Numbers Payment Provider Subscriber Commercial Effective: Policy Number[facility] Bartholomew 2007 [id number] Group Number: [id number] Group Name: [place] [address] PayID: [id number] Problems Date Description Provider Status Onset: 07/28/2017 Hyperlipidemia Nadia Mata NP Active Onset: 07/27/2017 Tension-type headache Donaldo Wells MD Active Onset: 07/27/2017 Essential hypertension Donaldo Wells MD Active Onset: 07/27/2017 Chest pain Donaldo Wells MD Active Onset: 03/07/2016 Lumbar radiculopathy Willie Damon M.D. Active Onset: 03/30/2015 Convalescence after surgery Los Hamilton M.D. Active Onset: 02/18/2015 Sciatica Los Hamilton M.D. Active Onset: 02/18/2015 Displacement of lumbar intervertebral Los Hamilton M.D. Active disc without myelopathy Family History Date Family Member(s) Problem(s) Comments General Heart Disease General Diabetes General Thyroid Disease General Cancer General Hemophilia General Multiple Sclerosis (MS) Social History Type Date Description Comments Occupation Currently Working Occupation Store stocking ETOH Use Denies alcohol use Recreational Drug Use Denies Drug Use Smoking Patient has never smoked Allergies, Adverse Reactions, Alerts Date Description Reaction Status Severity Comments 02/18/2015 Erythromycin active 02/18/2015 Ceclor active Medications Medication Date Status Form Strength Qnty SIG Indications Ordering Provider Gabapentin 03/30/ Active Capsules 100mg 90cap 1 po qhs M51.26 Los Castillo 2016 s as needed Jd Hamilton Lisinopril-Hydr / Active Tablets 20-25mg 1 by mouth Unknown ochlorothiazide 0000 every day Levothroid / Active Tablets 50mcg take 1 Unknown 0000 tablet by mouth one time daily Ibuprofen / Active Capsules 200mg as needed Unknown 0000 Fluticasone / Active Suspension 50mcg/Act 2 sprays Unknown Propionate 0000 each nostril qd. Acetaminophen / Active Tablets 500mg 2 by mouth Unknown 0000 twice a day prn Proair HFA / Active Aerosol 108(90Base 2 puffs by Unknown 0000 ) mcg/Act mouth every 4 hours as needed Diazepam / Active Tablets 2mg as needed Midura, 0000 MD Ludin Escitalopram / Active Tablets 5mg Take 1 To Unknown Oxalate 0000 2 Tablets By Mouth Every Morning For Anxiety Medrol 03/07/ Hx Tablets 4mg 1pack take as M54.16 Willie Wells - directed Nelson 03/22/ Jd 2016 Atenolol / Hx Tablets Unknown 1 by mouth Unknown 0000 - every day 2016 Prednisone / Hx Tablets 4mg take 6 Unknown (Rhys) 0000 - tabs/30mg 03/30/ on day 2015 1,take 5 tabs/25mg on day 2, take 4 tabs/20mg on day 3, take 3 tabs/15mg on day 4, 2 tabs day 2 Oxycodone HCL / Hx Capsules 5mg 1-2 tabs Unknown 0000 - by mouth 05/10/ every 4-6 2015 hours as needed pain Hydrocodone-Howie / Hx Tablets 5-325mg Unknown taminophen - 2017 Ketorolac / Hx Tablets 10mg Unknown Tromethamine - 2016 Tramadol HCL / Hx Tablets 50mg Unknown 0000 - 2016 Famotidine / Hx Tablets 20mg 1 by Aarti 0000 - mouth IV , Noe 09/26/ daily S, M.D. 2017 Hydroxyzine / Hx Capsules 25mg Aarti Pamoate 0000 - IV , Noe 09/26/ Jd West 2017 Clindamycin HCL / Hx Capsules 300mg Take 1 Unknown 0000 - Capsule By 2017 Three Times Daily For Infection Vital Signs Date Vital Result Comment 09/26/2017 Height 68 inches 5'8" Weight 183.00 lb BP Systolic Sitting 122 mmHg BP Diastolic Sitting 70 mmHg Pain Level 5 BMI (Body Mass Index) 27.8 kg/m2 03/22/2016 Height 68 inches 5'8" Weight 183.00 lb Heart Rate 72 /min BP Systolic Sitting 112 mmHg BP Diastolic Sitting 70 mmHg Pain Level 6 BMI (Body Mass Index) 27.8 kg/m2 03/07/2016 Height 68 inches 5'8" Weight 183.00 lb Heart Rate 76 /min BP Systolic Sitting 130 mmHg BP Diastolic Sitting 80 mmHg Pain Level 5 BMI (Body Mass Index) 27.8 kg/m2 05/11/2015 Height 68 inches 5'8" Heart Rate 78 /min BP Systolic Sitting 138 mmHg BP Diastolic Sitting 80 mmHg Pain Level 1 03/30/2015 Height 68 inches 5'8" Weight 181.00 lb Heart Rate 82 /min BP Systolic Sitting 130 mmHg BP Diastolic Sitting 80 mmHg Pain Level 2 BMI (Body Mass Index) 27.5 kg/m2 03/08/2015 Height 68 inches 5'8" Weight 170.00 lb Heart Rate 82 /min BP Systolic Sitting 150 mmHg BP Diastolic Sitting 100 mmHg Pain Level 9 BMI (Body Mass Index) 25.8 kg/m2 02/18/2015 Height 68 inches 5'8" Weight 179.00 lb Heart Rate 62 /min BP Systolic Sitting 130 mmHg BP Diastolic Sitting 80 mmHg Pain Level 7 BMI (Body Mass Index) 27.2 kg/m2 Results Test Date Test Result H/L Range Note Laboratory test 03/11/2015 Surgical Pathology SEE RESULT BELOW 1 finding CBC No Diff 03/09/2015 White Blood Count 7.5 10^3/uL 3.5-10.8 2 Red Blood Count 5.34 10^6/uL 4.0-5.4 2 Hemoglobin 16.3 g/dL 14.0-18.0 2 Hematocrit 49 % 42-52 2 Mean Corpuscular Volume 91 fL 80-94 2 Mean Corpuscular Hemoglobin 30 pg 27-31 2 Mean Corpuscular HGB Conc 33 g/dL 31-36 2 Red Cell Distribution Width 13 % 10.5-15 2 Platelet Count 253 10^3/uL 150-450 2 Mean Platelet Volume 8 um3 7.4-10.4 2 Type & Screen 03/09/2015 Patient Blood Type A Positive 2 Antibody Screen NEGATIVE 2 Basic Metabolic Panel 03/09/2015 Sodium 138 mmol/L 133-145 2 Potassium 4.1 mmol/L 3.5-5.0 2 Chloride 101 mmol/L 101-111 2 Co2 Carbon Dioxide 28 mmol/L 22-32 2 Anion Gap 9 mmol/L 2-11 2 Glucose 94 mg/dL 70-100 2 Blood Urea Nitrogen 23 mg/dL 6-24 2 Creatinine 1.19 mg/dL High 0.67-1.17 2 BUN/Creatinine Ratio 19.3 8-20 2 Calcium 9.7 mg/dL 8.6-10.3 2 Egfr Non- 68.8 >60 2 Egfr 88.5 >60 2, 3 Xray 04/30/2008 MRI Brain Without Contrast <pending> 1 SEE RESULT BELOW Name: FACUNDO BARTHOLOMEW : [address]: Los Hamilton MD Acct: [id number] Unit: [id number] AGE: 39 Location: OR Re03/11/15 SEX: M Status: REG SDC SPEC: [id number] HORACE: 03/11/15- SUBM DR: Los Hamilton MD REQ: [id number] RECD: 03/11/155635 STATUS: SOUT _ ORDERED: LEVEL III FINAL DIAGNOSIS Intervertebral disc, L4-L5, excision: -- Benign cartilaginous material. PRE-OPERATIVE DIAGNOSIS Right L4/5 other intervertebral disc displacement. GROSS DESCRIPTION The specimen is received in formalin labeled, Right L4-L5 Disc, and consists of a 3.7 x 1.0 x 0.5 cm aggregate of pink white fibrous tissue. The specimen is sectioned and contact center representative sections are submitted in one cassette. Signed (signature on file) Maribell Casas MD [id number] END OF REPORT * ML=Testing performed at Main Lab DEPARTMENT OF PATHOLOGY, [address] [place] [address] Alin Thomas M.D. Director [facility] # [id number] 2 AA 03/11 3 Because ethnic data is not always readily available, this report includes an eGFR for both -Americans and non- Americans. The National Kidney Disease Education Program (NKDEP) does not endorse the use of the MDRD equation for patients that are not between the ages of 18 and 70, are , have extremes of body size, muscle mass, or nutritional status, or are non- or non-. According to the National Kidney Foundation, irrespective of diagnosis, the stage of the disease is based on the level of kidney function: Stage Description GFR(mL/min/1.73 m(2)) 1 Kidney damage with normal or decreased GFR 90 2 Kidney damage with mild decrease in GFR 60-89 3 Moderate decrease in GFR 30-59 4 Severe decrease in GFR 15-29 5 Kidney failure <15 (or dialysis) Procedures Date CPT Code Description Status 08/23/2017 85604 Stress Test Completed 07/27/2017 38651 ECHO Transthorasic Realtime 2D W Doppler & Color Flow Completed Hosp 03/11/2015 39449 Laminotomy: Reexploration Single Interspace Lumbar Completed 03/21/2008 79106 Lamintomy;Each Addl Inerspace; Cervical Or Lumbar Completed 03/21/2008 43164 Laminotomy W/Decomp NRV RT,One Interspace,Lumbar Completed Encounters Type Date Location Provider CPT E/M Dx Office Visit 07/28/2017 [facility] [place] [address] R07.89 11:50a [facility] FACC Office Visit 07/28/2017 [facility]scott Mata 20601 R07.9 1:34p Hospitalists SUPPLIER MANAGER I10 G44.209 E78.5 Office Visit 07/27/2017 1:34p [facility], [place] [address] R07.9 Hospitalists I10 G44.209 Office Visit 03/22/2016 3:00p Neurosurgery Services Willie Damon, 98154 M54.16 Of [facility] M.Raheem Office Visit 03/07/2016 3:00p Neurosurgery Services Mandy Azul PA-C 60475 M54.16 Of [facility] Office Visit 03/08/2015 2:00p Neurosurgery Services Los Hamilton, 04441 M51.26 Of [facility] Yun.Raheem Office Visit 02/18/2015 11:00a [facility] Services Los Hamilton, 91632 M51.26 Of [facility] Miles M54.31 Office Visit 08/11/2010 2:30p [facility] Of Elmo Gonzales, 52079 724.2 [facility] Yun.Raheem Office Visit 04/28/2008 9:00a [facility] [place], 12193 784.0 [facility] Yun.DTico Office Visit 04/16/2008 9:30a [facility], 42334 784.0 [facility] Jd V45.89 Plan of Care 09/26/2017 - UVALDO Og-CM54.14 Radiculopathy, thoracic regionNew Xrays: MRI Thoracic Spine W/OFollow up:After MRI
--- NOTE | 2017-09-26 17:48 | RAD ---
Indication: Chest pain central chest that started approximately 2 hours ago. Intermittent pain for the past 2 months. History of asthma. Comparison: September 16, 2017 Technique: Upright AP 1722 hours Report: Clear lungs and pleural spaces. Negative for pneumothorax. The heart, pulmonary vasculature, and mediastinal contours are unremarkable. Unremarkable osseous structures and soft tissue contours. IMPRESSION: #. No evidence for acute intrathoracic disease.
[2017-09-26 17:49] LABS: EGFR Non-African American 65.2 (>60)
--- NOTE | 2017-09-26 18:14 | ED ---
HPI Chest Pain - HPI Summary HPI Summary: This is Valerie kim, documenting for attending Ector Avlia MD. This patient is a 42 year old M [place] [facility] [place] family with a chief complaint of left sided chest pain lasting 5 to 10 minutes around 16:00 today. He reports a history of chest pain that is typically anxiety/panic attack related. He states that typically that chest pain is centralized and not left sided. Denies current chest pain. He had a recent stress test in August 2017. PMHx of HTN and hypercholesterolemia I, Dr. Avila personally performed the services described in this documentation as scribed in my presence and it is both accurate and complete. - History of Current Complaint Chief Complaint: EDChestPainROMI Time Seen by Provider: 09/26/17 17:15 Hx Obtained From: Patient Onset/Duration: Started Hours Ago Timing: Lasting Minutes Pain Intensity: 4 Pain Scale Used: 0-10 Numeric Chest Pain Location: Left Anterior Chest Pain Radiates: No Alleviating Factor(s): Spontaneous Resolution Associated Signs and Symptoms: Positive: Chest Pain, Anxiety - Additional Pertinent History Primary Care Physician: [id number] - Allergy/Home Medications Allergies/Adverse Reactions: Allergies Allergy/AdvReac Type Severity Reaction Status Date / Time amoxicillin Allergy Rash Verified 09/26/17 17:02 cefaclor [From Ceclor] Allergy Unknown Verified 09/26/17 17:02 Reaction Details PMH/Surg Hx/FS Hx/Imm Hx Endocrine/Hematology History: Reports: Hx Thyroid Disease - HYPO Denies: Hx Anticoagulant Therapy, Hx Diabetes Cardiovascular History: Reports: Hx Hypercholesterolemia, Hx Hypertension Denies: Hx Congestive Heart Failure, Hx Deep Vein Thrombosis, Hx Myocardial Infarction, Hx Pacemaker/ICD, Hx Peripheral Vascular Disease Respiratory History: Reports: Hx Asthma - EXERCISE INDUCED Denies: Hx Chronic Obstructive Pulmonary Disease (COPD), Hx Lung Cancer, Hx Pneumonia, Hx Pulmonary Embolism GI History: Reports: Hx Gastroesophageal Reflux Disease Denies: Hx Gall Bladder Disease, Hx Gastrointestinal Bleed, Hx Ulcer, Hx Urosepsis History: Denies: Hx Kidney Stones, Hx Renal Disease Musculoskeletal History: Reports: Hx Back Problems - herniated discs Sensory History: Denies: Hx Contacts or Glasses, Hx Hearing Aid Opthamlomology History: Denies: Hx Contacts or Glasses Neurological History: Reports: Hx Headaches Denies: Hx Dementia, Hx Migraine, Hx Seizures, Hx Transient Ischemic Attacks (TIA) Psychiatric History: Reports: Hx Anxiety, Hx Substance Abuse - oxycodone (note -this note is in chart, not obtained by Dr. Kruger) Denies: Hx Depression, Hx Panic Disorder, Hx Schizophrenia, Hx Bipolar Disorder - Surgical History Surgery Procedure, Year, and Place: L4/5 [place] [facility] [place] KNEE [place]THROS[place] 20+YRS A[place] [facility] [place] Anesthesia Reactions: No Infectious Disease History: No Infectious Disease History: Reports: Hx Shingles Denies: Hx Hepatitis, Hx Human Immunodeficiency Virus (HIV), History Other Infectious Disease, Traveled Outside the [place] in Last 30 Days - Family History Known Family History: Positive: Cardiac Disease - no AR no stents, Hypertension , Other - sister with Tetralology of [place] Negative: Blood Disorder - Social History Alcohol Use: Rare Hx Substance Use: Yes Substance Use Type: Reports: None Substance Use Comment - Amount & Last Used: OXYCODONE PRN Hx Tobacco Use: No Smoking Status (MU): Never Smoked Tobacco Review of Systems Negative: Fever, Chills Negative: Sore Throat Positive: Chest Pain Negative: Shortness Of Breath, Cough Negative: Abdominal Pain, Vomiting, Diarrhea, Nausea Negative: dysuria, flank pain Negative: Myalgia, Edema Negative: Rash Neurological: Negative - dizziness All Other Systems Reviewed And Are Negative: Yes Physical Exam - Summary Physical Exam Summary: Constitutional: Well-developed, Well-nourished, Alert. (-) Distressed Skin: Warm, Dry HENT: Normocephalic; Atraumatic Eyes: Conjunctiva normal Neck: Musculoskeletal ROM normal neck. (-) JVD, (-) Stridor, (-) Tracheal deviation Cardio: Rhythm regular, rate normal, Heart sounds normal; Intact distal pulses; The pedal pulses are 2+ and symmetric. Radial pulses are 2+ and symmetric. (-) Murmur Pulmonary/Chest wall: Effort normal. (-) Respiratory distress, (-) Wheezes, (-) Rales Abd: Soft, (-) epigastric tenderness, (-) Distension, (-) Guarding, (-) Rebound Musculoskeletal: (-) Edema Lymph: (-) Cervical adenopathy Neuro: Alert, Oriented x3 Psych: Mood and affect Normal, Anxious appearing Triage Information Reviewed: Yes Vital Signs On Initial Exam: Initial Vitals Temp Pulse Resp BP Pulse Ox 98.7 F 55 16 149/91 98 09/26/17 16:57 09/26/17 16:57 09/26/17 16:57 09/26/17 16:57 09/26/17 16:57 Vital Signs Reviewed: Yes Diagnostics - Vital Signs Vital Signs Temp Pulse Resp BP Pulse Ox 09/26/17 16:57 98.7 F 55 16 149/91 98 - Laboratory Lab Results: Lab Results 09/26/17 09/26/17 09/26/17 Range/Units 17:20 17:20 17:20 WBC 6.8 (3.5-10.8) 10^3/ul RBC 5.20 (4.00-5.40) 10^6/ul Hgb 16.3 (14.0-18.0) g/dl Hct 47 (42-52) % MCV 90 (80-94) fL MCH 31 (27-31) pg MCHC 35 (31-36) g/dl RDW 13 (10.5-15) % Plt Count 268 (150-450) 10^3/ul MPV 7.3 L (7.4-10.4) um3 Neut % (Auto) 63.7 (38-83) % Lymph % (Auto) 26.5 (25-47) % [place] % (Auto) 7.8 H (0-7) % Eos % (Auto) 1.1 (0-6) % Baso % (Auto) 0.9 (0-2) % Absolute Neuts (auto) 4.3 (1.5-7.7) 10^3/ul Absolute Lymphs (auto) 1.8 (1.0-4.8) 10^3/ul Absolute Monos (auto) 0.5 (0-0.8) 10^3/ul Absolute Eos (auto) 0.1 (0-0.6) 10^3/ul Absolute Basos (auto) 0.1 (0-0.2) 10^3/ul Absolute Nucleated RBC 0 10^3/ul Nucleated RBC % 0.1 Sodium 137 (135-145) mmol/L Potassium 3.7 (3.5-5.0) mmol/L Chloride 104 (101-111) mmol/L Carbon Dioxide 24 (22-32) mmol/L Anion Gap 9 (2-11) mmol/L BUN 17 (6-24) mg/dL Creatinine 1.23 H (0.67-1.17) mg/dL Est GFR ( Amer) 78.9 (>60) Est GFR (Non-Af Amer) 65.2 (>60) BUN/Creatinine Ratio 13.8 (8-20) Glucose 94 (70-100) mg/dL Lactic Acid 1.3 (0.5-2.0) mmol/L Calcium 10.0 (8.6-10.3) mg/dL Total Bilirubin 0.70 (0.2-1.0) mg/dL AST 16 (13-39) U/L ALT 20 (7-52) U/L Alkaline Phosphatase 39 (34-104) U/L Troponin I 0.00 (<0.04) ng/mL Total Protein 7.4 (6.4-8.9) g/dL Albumin 5.0 (3.2-5.2) g/dL Globulin 2.4 (2-4) g/dL Albumin/Globulin Ratio 2.1 (1-3) Result Diagrams: 09/26/17 17:20 09/26/17 17:20 Lab Statement: Any lab studies that have been ordered have been reviewed, and results considered in the medical decision making process. - Radiology CXR Radiology Interpretation Completed By: Radiologist - No evidence for acute intrathoracic disease. ED Physician has reviewed this report. - EKG 1726 Cardiac Rate: Bradycardia - 51 BPM EKG Rhythm: Sinus Bradycardia EKG Interpretation: no STEMI Chest Pain Course/Dx - Course Course Of Treatment: 42 year old M [place] [facility] [place] family with a chief complaint of left sided chest pain lasting 5 to 10 minutes around 16:00 today. He reports a history of chest pain that is typically anxiety/panic attack related. He states that typically that chest pain is centralized and not left sided. Denies current chest pain. He had a recent stress test in August [address] Shrestha. PMHx of HTN and hypercholesterolemia. CXR is negative for cardiopulmonary disease. EKG reveals bradycardia of 51 BPM. Bloodwork is unremarkable. First and Second troponin's are negative. Dr. Conner states that after multiple recent visits with negative troponins and CAD is unlikely. Dr. Frankenberg assessed the patient and recommends discharge. Patient is instructed to follow up with his PCP, Dr. Shrestha, and the [facility]. - Diagnoses Provider Diagnoses: Chest pain, unspecified, Anxiety - Provider Notifications Discussed Care Of Patient With: Isamar Conner - cardiology Time Discussed With Above Provider: 19:15 Instructed by Provider To: Other - with multiple recent visits with negative troponins she states CAD is unlikely Discharge - Sign-Out/Discharge Documenting (check all that apply): Patient Departure - Discharge Plan Condition: Stable Disposition: HOME Prescriptions: hydrOXYzine HCL TAB* [Atarax TAB 50 MG *] 50 mg PO QID PRN #40 tab PRN Reason: Anxiety Patient Education Materials: Chest Pain (ED), Anxiety (ED) Referrals: [facility] [Outside] - 1 Day (Follow up in 1-2 days) Ludin Bar MD [Primary Care Provider] - 2 Days Mike Shrestha DO [Medical Doctor] - 3 Days Additional Instructions: RETURN TO THE EMERGENCY DEPARTMENT FOR CHANGING OR WORSENING SYMPTOMS.
--- NOTE | 2017-09-26 21:59 | CONSULT ---
Consult Consult: PCP: Viktoriya Bar MD Cardiology: Shante Shrestha MD Date/Time: 09/26/2017 2130 Reason for Consult: chest pain HPI: Mr Bartholomew is a 42YO non-smoking, non-obese male HX HTN, HLD, & anxiety who has presented several times recently for chest pain and had a low risk stress stress test at [facility] in early August of this year. Today around 1600 he was sitting when he felt a 'twinge' of non-exertional, non-radiating L anterior chest/shoulder discomfort which he cannot further characterize and was not associated with SOB, N/V, sweating, palpitations, or light-headedness. He has received 2 troponins 3 hours apart which are both reported as 0.00. His ECG is normal. He has no family HX of CAD or CVA, early onset or otherwise. PMedHx HTN HLD anxiety Ambulatory Orders Acetaminophen TAB* [Tylenol TAB*] 650 mg PO Q4H PRN 08/07/17 Diazepam TAB(*) [Valium TAB(*)] 2 mg PO BID PRN 08/07/17 Levothyroxine TAB* [Synthroid TAB*] 25 mcg PO QAM 08/07/17 Lisinopril/HCTZ 20/12.5(NF) [Zestoretic 20/12.5(NF)] 1 tab PO QAM 08/07/17 Lexapro 5 mg (NF) 5 mg PO DAILY 09/16/17 Oxycodone HCl 5 mg PO Q6H PRN 09/16/17 Fluticasone NASAL SPRAY 50MCG* [Flonase NASAL SPRAY 50MCG*] 2 spray BOTH NARES DAILY 09/23/17 Ibuprofen TAB* [Advil TAB*] 400 mg PO Q6H PRN 09/23/17 tiZANidine TAB* [Zanaflex TAB*] 2 mg PO TID #21 tab 09/23/17 hydrOXYzine HCL TAB* [Atarax TAB 50 MG *] 50 mg PO QID PRN #40 tab 09/26/17 Allergies amoxicillin Allergy (Verified 09/26/17 17:02) Rash cefaclor [From Ceclor] Allergy (Verified 09/26/17 17:02) Unknown Reaction Details SocHx: denies tobacco, alcohol, & recreational drugs - specifically cocaine & amphetamines; FamHx: negative for CAD/CVA ROS: as above, otherwise reviewed and all were negative vitals: Vital Signs Temp 36.4 C 09/26/17 22:10 Pulse 58 09/26/17 22:10 Resp 13 09/26/17 22:10 BP 160/91 09/26/17 22:10 Pulse Ox 96 09/26/17 22:10 Intake & Output 09/25/17 09/26/17 09/26/17 23:59 11:59 23:59 Weight 81.647 kg Constitutional: NAD, normally developed, well-nourished white male HEENM: atraumatic; sclera/conjunctiva: anicteric/clear; hearing: intact; oropharynx: clear, mucosa moist Neck: soft tissue: non-tender; thyroid: normal Pulmonary: clear to auscultation bilaterally, good aeration, no accessory muscle use CV: RR/RR, normal S1S2, no carotid bruit, no jugular venous distention, 2+ B DP/ PT, no edema Abdominal: soft, non-distended, non-tender, no rebound/guarding/rigidity, normoactive bowel sounds, no hepatosplenomegaly or masses, no costovertebral angle tenderness Musculoskeletal: general: grossly intact, non-tender Integumental: normal appearance and texture Psychiatric orientation: AA&O to PPS affect: mildly anxious mood: pleasant eye contact: good content: reliable responses: timely insight: fair Testing: Lab Results 09/26/17 09/26/17 09/26/17 Range/Units 17:20 17:20 17:20 WBC 6.8 (3.5-10.8) 10^3/ul RBC 5.20 (4.00-5.40) 10^6/ul Hgb 16.3 (14.0-18.0) g/dl Hct 47 (42-52) % MCV 90 (80-94) fL MCH 31 (27-31) pg MCHC 35 (31-36) g/dl RDW 13 (10.5-15) % Plt Count 268 (150-450) 10^3/ul MPV 7.3 L (7.4-10.4) um3 Neut % (Auto) 63.7 (38-83) % Lymph % (Auto) 26.5 (25-47) % [place] % (Auto) 7.8 H (0-7) % Eos % (Auto) 1.1 (0-6) % Baso % (Auto) 0.9 (0-2) % Absolute Neuts (auto) 4.3 (1.5-7.7) 10^3/ul Absolute Lymphs (auto) 1.8 (1.0-4.8) 10^3/ul Absolute Monos (auto) 0.5 (0-0.8) 10^3/ul Absolute Eos (auto) 0.1 (0-0.6) 10^3/ul Absolute Basos (auto) 0.1 (0-0.2) 10^3/ul Absolute Nucleated RBC 0 10^3/ul Nucleated RBC % 0.1 Sodium 137 (135-145) mmol/L Potassium 3.7 (3.5-5.0) mmol/L Chloride 104 (101-111) mmol/L Carbon Dioxide 24 (22-32) mmol/L Anion Gap 9 (2-11) mmol/L BUN 17 (6-24) mg/dL Creatinine 1.23 H (0.67-1.17) mg/dL Est GFR ( Amer) 78.9 (>60) Est GFR (Non-Af Amer) 65.2 (>60) BUN/Creatinine Ratio 13.8 (8-20) Glucose 94 (70-100) mg/dL Lactic Acid 1.3 (0.5-2.0) mmol/L Calcium 10.0 (8.6-10.3) mg/dL Total Bilirubin 0.70 (0.2-1.0) mg/dL AST 16 (13-39) U/L ALT 20 (7-52) U/L Alkaline Phosphatase 39 (34-104) U/L Troponin I 0.00 (<0.04) ng/mL Total Protein 7.4 (6.4-8.9) g/dL Albumin 5.0 (3.2-5.2) g/dL Globulin 2.4 (2-4) g/dL Albumin/Globulin Ratio 2.1 (1-3) /10/06 Range/Units 20:23 WBC (3.5-10.8) 10^3/ul RBC (4.00-5.40) 10^6/ul Hgb (14.0-18.0) g/dl Hct (42-52) % MCV (80-94) fL MCH (27-31) pg MCHC (31-36) g/dl RDW (10.5-15) % Plt Count (150-450) 10^3/ul MPV (7.4-10.4) um3 Neut % (Auto) (38-83) % Lymph % (Auto) (25-47) % [place] % (Auto) (0-7) % Eos % (Auto) (0-6) % Baso % (Auto) (0-2) % Absolute Neuts (auto) (1.5-7.7) 10^3/ul Absolute Lymphs (auto) (1.0-4.8) 10^3/ul Absolute Monos (auto) (0-0.8) 10^3/ul Absolute Eos (auto) (0-0.6) 10^3/ul Absolute Basos (auto) (0-0.2) 10^3/ul Absolute Nucleated RBC 10^3/ul Nucleated RBC % Sodium (135-145) mmol/L Potassium (3.5-5.0) mmol/L Chloride (101-111) mmol/L Carbon Dioxide (22-32) mmol/L Anion Gap (2-11) mmol/L BUN (6-24) mg/dL Creatinine (0.67-1.17) mg/dL Est GFR ( Amer) (>60) Est GFR (Non-Af Amer) (>60) BUN/Creatinine Ratio (8-20) Glucose (70-100) mg/dL Lactic Acid (0.5-2.0) mmol/L Calcium (8.6-10.3) mg/dL Total Bilirubin (0.2-1.0) mg/dL AST (13-39) U/L ALT (7-52) U/L Alkaline Phosphatase (34-104) U/L Troponin I 0.00 (<0.04) ng/mL Total Protein (6.4-8.9) g/dL Albumin (3.2-5.2) g/dL Globulin (2-4) g/dL Albumin/Globulin Ratio (1-3) ECG, personally reviewed: NSR rate 51, no ischemia CXR, personally reviewed: IMPRESSION: #. No evidence for acute intrathoracic disease. Impression: 42M HX HTN, HLD, & anxiety presents with atypical CP with negative ECG & 2 negative troponins 3H apart 1 month after low risk stress testing DIAGNOSIS & PLAN Primary atypical chest pain, very low suspicion of cardiac etiology : previous negative PE work up : continue current medications : follow up with PCP & cardiology for further evaluation/medication monitoring HTN : continue current medications HLD : follow up with PCP for further evaluation/medication monitoring anxiety : continue current medications : follow up with PCP for further evaluation/medication monitoring Patient is advised to return for chest pain, SOB, sweating, N/V, palpitations or other issues worrisome enough for him to believe emergency evaluation is warranted.
[2017-09-26 22:11] VITALS: BP 160/91
== END 2017-09-26 22:10 | disposition home or self-care (01) ==
LOC: ED 16:55
DX: R07.89 Other chest pain (principal); F41.9 Anxiety disorder, unspecified; R00.1 Bradycardia, unspecified; Z88.1 Allergy status to other antibiotic agents; Z88.0 Allergy status to penicillin; Z82.49 Family history of ischemic heart disease and other diseases of the circulatory system
CPT/HCPCS: 36415; 71045; 80053; 83605; 84484; 85025; 93005; 99282

== ENCOUNTER 2017-10-12 11:52 | Emergency (ER) | payer OTHER ==
[2017-10-12 12:53] LABS: ABS Basophils 0 10^3/ul (0-0.2); ABS Eosinophils 0 10^3/ul (0-0.6); ABS Monocytes 0.4 10^3/ul (0-0.8); ABS Neutrophils 4.9 10^3/ul (1.5-7.7); ABS Nucleated RBC 0 10^3/ul; Eosinophil % 0.8 % (0-6); Hematocrit 44 % (42-52); Hemoglobin 15.2 g/dl (14.0-18.0); Lymphocyte % 15.1 % (25-47); Mean Corpuscular HGB Conc 35 g/dl (31-36); Mean Corpuscular Hemoglobin 31 pg (27-31); Mean Corpuscular Volume 90 fL (80-94); Nucleated Red Blood Cells % 0.1; Platelet Count 226 10^3/ul (150-450); Red Blood Count 4.91 10^6/ul (4.00-5.40); Red Cell Distribution Width 13 % (10.5-15); White Blood Count 6.4 10^3/ul (3.5-10.8)
[2017-10-12 13:17] LABS: EGFR Non-African American 72.6 (>60)
--- NOTE | 2017-10-12 13:43 | RAD ---
INDICATION: Chest pain COMPARISON: September 26, 2017 TECHNIQUE: An AP portable view obtained at 1250 hours is submitted. FINDINGS: Bones/Soft Tissues: There are no acute bony findings. Cardiomediastinal: The cardiomediastinal silhouette is normal. Lungs: There are no infiltrates. Pleura: There are no pleural effusions. Other: None IMPRESSION: NO ACTIVE DISEASE.
--- NOTE | 2017-10-12 13:53 | ED ---
HPI Chest Pain - HPI Summary HPI Summary: Patient is a 42 y/o M w/ c/o chest pain and palpitations onsetting this morning. He reports experiencing heart palpitations that took his breath away and felt anxious shortly afterwards. In the room, he notes chest pain at upper sternal region. However, he describes pain as "nerve pain". Pain is also described as tingling and sometimes sharp. He notes occasional upper back pain between shoulders as well. In room, pain is rated 1-2/10. Patient reports chest pain has been present for "some time" and states he received some musculoskeletal Dx. He states that he saw [facility] consultant for a stress test August 23. He also reports chest pain worsens with exertion and also experiences SOB with exertion. However, he notes it usually takes 3-4 hours of constant activity to aggravate chest pain. He states he measured BP with machine which he has at home. He states machine read, "irregular heartbeat". Patient has HTN and takes Lisinopril. Patient also reports Hx of hypothyroidism and takes levothyroxine. He has not had thyroid levels checked recently. He reports Hx of high cholesterol but has no Dx of HLD. No Dx of irregular heartbeat previously, denies cardiac Hx. Patient has Hx of anxiety. On triage, nothing is noted to aggravate/alleviate Sx. Home medications and allergies are reviewed. - History of Current Complaint Chief Complaint: EDDysrhythmPalp Time Seen by Provider: 10/12/17 12:13 Onset/Duration: Started Hours Ago - palpitations, SOB, anxiety, Started Weeks Ago - chest pain, notes chest pain has been present for "some time", Still Present Timing: Constant Current Severity: Mild Pain Intensity: 2 Pain Scale Used: 0-10 Numeric - 1-2/10 in room Chest Pain Location: Upper Sternal Character: Other: - tingling, sometimes sharp Aggravating Factor(s): Exertion - chest pain worse with exertion, SOB also occurs with exertion Alleviating Factor(s): Nothing Associated Signs and Symptoms: Positive: Chest Pain, Anxiety, Shortness of Breath, Palpitations, Back Pain - sometimes experiences upper back pain between shoulders, Other: - Additional Pertinent History Primary Care Physician: MICHELE - Allergy/Home Medications Allergies/Adverse Reactions: Allergies Allergy/AdvReac Type Severity Reaction Status Date / Time amoxicillin Allergy Rash Verified 09/26/17 17:02 cefaclor [From Ceclor] Allergy Unknown Verified 09/26/17 17:02 Reaction Details PMH/Surg Hx/FS Hx/Imm Hx Endocrine/Hematology History: Reports: Hx Thyroid Disease - HYPO Denies: Hx Anticoagulant Therapy, Hx Diabetes Cardiovascular History: Reports: Hx Hypercholesterolemia, Hx Hypertension Denies: Hx Congestive Heart Failure, Hx Deep Vein Thrombosis, Hx Myocardial Infarction, Hx Pacemaker/ICD, Hx Peripheral Vascular Disease Respiratory History: Reports: Hx Asthma - EXERCISE INDUCED Denies: Hx Chronic Obstructive Pulmonary Disease (COPD), Hx Lung Cancer, Hx Pneumonia, Hx Pulmonary Embolism GI History: Reports: Hx Gastroesophageal Reflux Disease Denies: Hx Gall Bladder Disease, Hx Gastrointestinal Bleed, Hx Ulcer, Hx Urosepsis History: Denies: Hx Kidney Stones, Hx Renal Disease Musculoskeletal History: Reports: Hx Back Problems - herniated discs Sensory History: Denies: Hx Contacts or Glasses, Hx Hearing Aid Opthamlomology History: Denies: Hx Contacts or Glasses Neurological History: Reports: Hx Headaches Denies: Hx Dementia, Hx Migraine, Hx Seizures, Hx Transient Ischemic Attacks (TIA) Psychiatric History: Reports: Hx Anxiety, Hx Substance Abuse - oxycodone (note -this note is in chart, not obtained by Dr. Kruger) Denies: Hx Depression, Hx Panic Disorder, Hx Schizophrenia, Hx Bipolar Disorder - Surgical History Surgery Procedure, Year, and Place: L4/5 LAMINOTOMY 2008 [facility] [place] - redo in 2015. KNEE ARTHROSCOPY 20+YRS AGO [facility] [place] Hx Anesthesia Reactions: No Infectious Disease History: No Infectious Disease History: Reports: Hx Shingles Denies: Hx Hepatitis, Hx Human Immunodeficiency Virus (HIV), History Other Infectious Disease, Traveled Outside the [place] in Last 30 Days - Family History Known Family History: Positive: Cardiac Disease - no VT no stents, Hypertension , Other - sister with Tetralology of Fallot Negative: Blood Disorder - Social History Alcohol Use: None Hx Substance Use: Yes Substance Use Type: Reports: None Substance Use Comment - Amount & Last Used: OXYCODONE PRN Hx Tobacco Use: No Smoking Status (MU): Never Smoked Tobacco Review of Systems Positive: Palpitations, Chest Pain - described as nerve pain Positive: Shortness Of Breath Positive: Other - occasional upper back pain between shoulders Positive: Anxious All Other Systems Reviewed And Are Negative: Yes Physical Exam - Summary Physical Exam Summary: GENERAL: Patient is a well developed and nourished male who is anxious appearing lying in the stretcher. Patient is not in any acute respiratory distress. HEAD AND FACE: Normocephalic EYES: PERRLA, EOMI x 2. EARS: Hearing grossly intact. MOUTH: Oropharynx within normal limits. NECK: Supple, trachea is midline, no adenopathy, no JVD, no carotid bruit. CHEST: Symmetric, no tenderness at palpation LUNGS: Clear to auscultation bilaterally. No wheezing or crackles. CVS: Regular rate and rhythm, S1 and S2 present, no murmurs or gallops appreciated. ABDOMEN: Soft, non-tender. Bowel sounds are normal. No abdominal abnormal pulsations. EXTREMITIES: Full ROM in all major joints, no edema, no cyanosis or clubbing. NEURO: Alert and oriented x 3. No acute neurological deficits. Speech is normal and follows commands. SKIN: Dry and warm Triage Information Reviewed: Yes Vital Signs On Initial Exam: Initial Vitals Temp Pulse Resp BP Pulse Ox 98.7 F 74 16 138/94 100 10/12/17 11:53 10/12/17 11:53 10/12/17 11:53 10/12/17 11:53 10/12/17 11:53 Vital Signs Reviewed: Yes Diagnostics - Vital Signs Vital Signs Temp Pulse Resp BP Pulse Ox 10/12/17 12:27 63 14 137/91 96 10/12/17 12:23 75 18 95 10/12/17 11:53 98.7 F 74 16 138/94 100 - Laboratory Lab Results: Lab Results 10/12/17 10/12/17 10/12/17 Range/Units 12:40 12:40 12:40 WBC 6.4 (3.5-10.8) 10^3/ul RBC 4.91 (4.00-5.40) 10^6/ul Hgb 15.2 (14.0-18.0) g/dl Hct 44 (42-52) % MCV 90 (80-94) fL MCH 31 (27-31) pg MCHC 35 (31-36) g/dl RDW 13 (10.5-15) % Plt Count 226 (150-450) 10^3/ul MPV 7.0 L (7.4-10.4) um3 Neut % (Auto) 76.8 (38-83) % Lymph % (Auto) 15.1 L (25-47) % [place] % (Auto) 6.5 (0-7) % Eos % (Auto) 0.8 (0-6) % Baso % (Auto) 0.8 (0-2) % Absolute Neuts (auto) 4.9 (1.5-7.7) 10^3/ul Absolute Lymphs (auto) 1.0 (1.0-4.8) 10^3/ul Absolute Monos (auto) 0.4 (0-0.8) 10^3/ul Absolute Eos (auto) 0 (0-0.6) 10^3/ul Absolute Basos (auto) 0 (0-0.2) 10^3/ul Absolute Nucleated RBC 0 10^3/ul Nucleated RBC % 0.1 APTT (26.0-36.3) seconds D-Dimer, Quantitative (Less Than 230) ng/mL Sodium 137 (135-145) mmol/L Potassium 3.9 (3.5-5.0) mmol/L Chloride 103 (101-111) mmol/L Carbon Dioxide 27 (22-32) mmol/L Anion Gap 7 (2-11) mmol/L BUN 17 (6-24) mg/dL Creatinine 1.12 (0.67-1.17) mg/dL Est GFR ( Amer) 87.9 (>60) Est GFR (Non-Af Amer) 72.6 (>60) BUN/Creatinine Ratio 15.2 (8-20) Glucose 115 H (70-100) mg/dL Lactic Acid 1.3 (0.5-2.0) mmol/L Calcium 10.1 (8.6-10.3) mg/dL Total Bilirubin 0.50 (0.2-1.0) mg/dL AST 23 (13-39) U/L ALT 31 (7-52) U/L Alkaline Phosphatase 40 (34-104) U/L Troponin I 0.00 (<0.04) ng/mL B-Natriuretic Peptide ( - 100) pg/mL Total Protein 7.1 (6.4-8.9) g/dL Albumin 4.7 (3.2-5.2) g/dL Globulin 2.4 (2-4) g/dL Albumin/Globulin Ratio 2.0 (1-3) TSH Pending Thyroxine (T4) Pending 10/12/17 10/12/17 Range/Units 12:40 12:40 WBC (3.5-10.8) 10^3/ul RBC (4.00-5.40) 10^6/ul Hgb (14.0-18.0) g/dl Hct (42-52) % MCV (80-94) fL MCH (27-31) pg MCHC (31-36) g/dl RDW (10.5-15) % Plt Count (150-450) 10^3/ul MPV (7.4-10.4) um3 Neut % (Auto) (38-83) % Lymph % (Auto) (25-47) % [place] % (Auto) (0-7) % Eos % (Auto) (0-6) % Baso % (Auto) (0-2) % Absolute Neuts (auto) (1.5-7.7) 10^3/ul Absolute Lymphs (auto) (1.0-4.8) 10^3/ul Absolute Monos (auto) (0-0.8) 10^3/ul Absolute Eos (auto) (0-0.6) 10^3/ul Absolute Basos (auto) (0-0.2) 10^3/ul Absolute Nucleated RBC 10^3/ul Nucleated RBC % APTT 29.3 (26.0-36.3) seconds D-Dimer, Quantitative < 200 (Less Than 230) ng/mL Sodium (135-145) mmol/L Potassium (3.5-5.0) mmol/L Chloride (101-111) mmol/L Carbon Dioxide (22-32) mmol/L Anion Gap (2-11) mmol/L BUN (6-24) mg/dL Creatinine (0.67-1.17) mg/dL Est GFR ( Amer) (>60) Est GFR (Non-Af Amer) (>60) BUN/Creatinine Ratio (8-20) Glucose (70-100) mg/dL Lactic Acid (0.5-2.0) mmol/L Calcium (8.6-10.3) mg/dL Total Bilirubin (0.2-1.0) mg/dL AST (13-39) U/L ALT (7-52) U/L Alkaline Phosphatase (34-104) U/L Troponin I (<0.04) ng/mL B-Natriuretic Peptide 13 ( - 100) pg/mL Total Protein (6.4-8.9) g/dL Albumin (3.2-5.2) g/dL Globulin (2-4) g/dL Albumin/Globulin Ratio (1-3) TSH Thyroxine (T4) Result Diagrams: 10/12/17 12:40 10/12/17 12:40 Lab Statement: Any lab studies that have been ordered have been reviewed, and results considered in the medical decision making process. - Radiology CXR Xray Interpretation: No Acute Changes Radiology Interpretation Completed By: Radiologist - No active disease. This report was reviewed by ED physician. - EKG 1225 Cardiac Rate: NL - Rate of 70 BPM EKG Rhythm: Sinus Rhythm EKG Interpretation: left atrial enlargement, biphasic Re-Evaluation - Re-Evaluation First Eval Re-Evaluation Time: 13:57 Comment: Discussed results of labs and tests with patient. Patient will be discharged to home and follow up with [employer] consultant in 1-2 days. Patient is agreeable with this plan. Patient was hemodynamically stable upon discharge. Chest Pain Course/Dx - Course Assessment/Plan: Patient is a 42 y/o M w/ c/o chest pain and palpitations onsetting this morning. He reports experiencing heart palpitations that took his breath away and felt anxious shortly afterwards. In the room, he notes chest pain at upper sternal region. However, he describes pain as "nerve pain". Pain is also described as tingling and sometimes sharp. He notes occasional upper back pain between shoulders as well. In room, pain is rated 1-2/10. Patient reports chest pain has been present for "some time" and states he received some musculoskeletal Dx. He states that he saw [facility] consultant for a stress test August 23. He also reports chest pain worsens with exertion and also experiences SOB with exertion. However, he notes it usually takes 3-4 hours of constant activity to aggravate chest pain. He states he measured BP with machine which he has at home. He states machine read, "irregular heartbeat". Patient has HTN and takes Lisinopril. Patient also reports Hx of hypothyroidism and takes levothyroxine. He has not had thyroid levels checked recently. He reports Hx of high cholesterol but has no Dx of HLD. No Dx of irregular heartbeat previously, denies cardiac Hx. Patient has Hx of anxiety. Physical exam revealed no abnormal findings. Labs showed TSH 2.14, T4 5.94, BNP 13, lactic acid 1.3, d-dimer 200. CXR was normal. EKG showed NSR 70 BPM, left atrial enlargement, biphasic. Patient will be discharged to home with diagnosis of heart palpitations. Plan for discharge was discussed with patient. Patient is agreeable with plan. He is hemodynamically stable upon discharge. Strict return precautions given and he will follow up with [employer] consultant. - Diagnoses Provider Diagnoses: Heart palpitations Discharge - Sign-Out/Discharge Documenting (check all that apply): Patient Departure - discharge - Discharge Plan Condition: Stable Disposition: HOME Patient Education Materials: Heart Palpitations (ED) Referrals: [facility] [Provider Group] Additional Instructions: Follow up with [employer] consultant in 1-2 days. Return to ED for any changing or worsening symptoms. - Billing Disposition and Condition Condition: STABLE Disposition: Home - Attestation Statements Document Initiated by Scribe: Yes Documenting Scribe: Romeo Freedman Provider For Whom Scribe is Documenting (Include Credential): Diane Neves M.D. Scribe Attestation: Romeo Barreto scribed for Diane Neves M.D. on 10/13/17 at 1749. Scribe Documentation Reviewed: Yes Provider Attestation: The documentation as recorded by the Romeo kim accurately reflects the service I personally performed and the decisions made by Diane bowles M.D.
[2017-10-12 14:19] VITALS: BP 128/87
== END 2017-10-12 14:18 | disposition home or self-care (01) ==
LOC: ED 11:52
DX: R00.2 Palpitations (principal); R07.9 Chest pain, unspecified; R06.02 Shortness of breath; M54.9 Dorsalgia, unspecified
CPT/HCPCS: 36415; 71045; 80053; 83605; 83880; 84436; 84443; 84484; 85025; 85379; 85730; 93005; 99282